=== PATIENT | female | born 1975 | race Caucasian/White ===

== ENCOUNTER → 2022-07-25 08:15 | Outpatient (BNVA) | payer MEDICAID, SELFPAY | PROVIDERS: PCP Internal Medicine; Visit Provider Internal Medicine Gastroenterology | DX: Z13.89 Encounter for screening for other disorder (principal) ==

== ENCOUNTER → 2022-08-16 13:59 | Outpatient (BNVA) | payer MEDICAID, SELFPAY | PROVIDERS: PCP Internal Medicine; Visit Provider Internal Medicine | DX: Z86.010 Personal history of colon polyps (principal); Z80.0 Family history of malignant neoplasm of digestive organs | CPT/HCPCS: 99202 ==

== ENCOUNTER 2022-10-18 05:54 | Day surgery (SDC) | payer MEDICARE, MEDICAID, SELFPAY ==
--- NOTE | 2022-10-17 13:19 | HO.ANESPROP2 ---
Documented by User: Cathleen Richmond NP 10/17/22 13:20 HPI - Anesthesia Eval Consult details Narrative: 47yo F for Colonoscopy PMFSH Active Problems Active Problems: All Active Problems (Updated 08/16/22 @ 15:19 by Jenny Mckeon MD) Family history of colon cancer (Acute) Personal history of colonic polyps (Acute) Past Medical History Medical History Asthma Chronic low back pain Fibromyalgia Gastric volvulus GERD (gastroesophageal reflux disease) History of anxiety History of trigger finger Hx of lipoma Hyperlipidemia Hypertension Family History Family History Paternal Aunt Colon cancer HTN (hypertension) Family/Other Colon cancer Maternal Grandfather Colon cancer Heart attack Maternal Grandmother Colon cancer Heart attack Father HTN (hypertension) Maternal Aunt HTN (hypertension) Paternal Aunt HTN (hypertension) Surgical History Surgical History H/O gastric sleeve History of carpal tunnel release of both wrists History of esophagogastroduodenoscopy (EGD) Hx of abdominal surgery Hx of cholecystectomy Hx of colonoscopy Hx of knee surgery Hx of LASIK Hx of shoulder surgery Social History Social History Patient Tobacco Use Status: Never used Tobacco Use of substances other than those prescribed or required for medical reasons: No Are you DNR?: No Advance Directives: No Advance Directives Information Provided: Yes Meds Allergies Allergy/AdvReac Type Severity Reaction Status Date / Time seafood Allergy Severe Anaphylaxis Verified 10/18/22 06:51 iodine Allergy Rash Verified 10/18/22 06:51 silicone Allergy Blister Verified 10/18/22 06:51 Home Medications Medication Instructions Recorded Confirmed Last Taken Type cyclobenzaprine 10 mg tablet 10 mg PO TID PRN moderate pain 08/16/22 10/13/22 Unknown History ketoconazole 2 % shampoo topical 3XW 08/16/22 Unknown History levalbuterol tartrate 45 2 puff inhalation Q6H PRN dyspnea 08/16/22 10/13/22 Unknown History mcg/actuation aerosol inhaler lisinopril 5 mg tablet 5 mg PO DAILY 08/16/22 10/13/22 Unknown History milnacipran 50 mg tablet (Savella) 50 mg PO BID 08/16/22 10/13/22 Unknown History omeprazole 20 mg capsule,delayed 20 mg PO BID 08/16/22 10/18/22 10/18/22 04:30 History release rosuvastatin 10 mg tablet 10 mg PO DAILY 08/16/22 10/13/22 Unknown History hydroxyzine HCl 10 mg tablet 1 tab PO QID PRN anxiety 10/18/22 10/18/22 Unknown History Exam Exam Date and Time: October 17, 2022 1319 Assessment and Plan Assessment Anesthesia Assessment: Chart Reviewed Documented by User: Bettye Dumont MD 10/18/22 07:40 PMFSH Past Medical History Medical History Asthma Chronic low back pain Fibromyalgia Gastric volvulus GERD (gastroesophageal reflux disease) History of anxiety History of trigger finger Hx of lipoma Hyperlipidemia Hypertension Family History Family History Paternal Aunt Colon cancer HTN (hypertension) Family/Other Colon cancer Maternal Grandfather Colon cancer Heart attack Maternal Grandmother Colon cancer Heart attack Father HTN (hypertension) Maternal Aunt HTN (hypertension) Paternal Aunt HTN (hypertension) Surgical History Surgical History H/O gastric sleeve History of carpal tunnel release of both wrists History of esophagogastroduodenoscopy (EGD) Hx of abdominal surgery Hx of cholecystectomy Hx of colonoscopy Hx of knee surgery Hx of LASIK Hx of shoulder surgery History of Problems with Anesthesia: No Social History Social History Patient Tobacco Use Status: Never used Tobacco Use of substances other than those prescribed or required for medical reasons: No Are you DNR?: No Advance Directives: No Advance Directives Information Provided: Yes Meds Allergies Allergy/AdvReac Type Severity Reaction Status Date / Time seafood Allergy Severe Anaphylaxis Verified 10/18/22 06:51 iodine Allergy Rash Verified 10/18/22 06:51 silicone Allergy Blister Verified 10/18/22 06:51 Home Medications Medication Instructions Recorded Confirmed Last Taken Type cyclobenzaprine 10 mg tablet 10 mg PO TID PRN moderate pain 08/16/22 10/13/22 Unknown History ketoconazole 2 % shampoo topical 3XW 08/16/22 Unknown History levalbuterol tartrate 45 2 puff inhalation Q6H PRN dyspnea 08/16/22 10/13/22 Unknown History mcg/actuation aerosol inhaler lisinopril 5 mg tablet 5 mg PO DAILY 08/16/22 10/13/22 Unknown History milnacipran 50 mg tablet (Savella) 50 mg PO BID 08/16/22 10/13/22 Unknown History omeprazole 20 mg capsule,delayed 20 mg PO BID 08/16/22 10/18/22 10/18/22 04:30 History release rosuvastatin 10 mg tablet 10 mg PO DAILY 08/16/22 10/13/22 Unknown History hydroxyzine HCl 10 mg tablet 1 tab PO QID PRN anxiety 10/18/22 10/18/22 Unknown History Exam Airway Mallampati Class: II TM Dist: >3cm Neck ROM: Full Loose/Missing/Broken Teeth: No Heart: RRR Lungs: CTA Assessment and Plan Assessment Anesthesia Assessment: Anesthesia Plan Discussed Final Anesthetic Review History of Problems with Anesthesia: No NPO: Yes ASA Class: II Final Preanesthetic Review: Meds/Allgs Chart Reviewed, Consent Obtained/Reviewed and Anes Risks/Benef Reviewed Patient Risk: Low Procedure Risk: Low Anesthetic Plan Anesthetic Plan: MAC: Disposition: Standard PACU
[2022-10-18 06:25] VITALS: BMI 35.5
[2022-10-18 06:31] LABS: UPreg QC Valid YES; Urine Pregnancy NEGATIVE (NEGATIVE)
[2022-10-18 06:41] VITALS: BP 93/55; PULSE 81; RESP 15; TEMP 36.6; O2SAT 95
[2022-10-18] MEDS: Lactated Ringers 1,000 ML 100 ML IVCONT (06:48)
--- NOTE | 2022-10-18 07:36 | MHC.SHP ---
Pre-Procedural Eval Section A Date of Service: 10/18/22 Section B Chief Complaint: Personal history of colonic polyps Details of Present Illness: PMH: Chronic low back pain Fibromyalgia Gastric volvulus GERD (gastroesophageal reflux disease) Hyperlipidemia Hypertension Surgical History H/O gastric sleeve History of esophagogastroduodenoscopy (EGD) Hx of colonoscopy Relevant Social History: None Present Medications: see Short Stay Collaborative assessment Allergies: Allergies Allergy/AdvReac Type Severity Reaction Status Date / Time seafood Allergy Severe Anaphylaxis Verified 10/18/22 06:51 iodine Allergy Rash Verified 10/18/22 06:51 silicone Allergy Blister Verified 10/18/22 06:51 Review of Systems Review of Systems Comment: 10 point ROS negative Exam Exam Comment: Gen appear: No acute distress HEENT: no icterus Chest: No overt resp distress Abd: soft, nontender, nondistended Psych: Stable affect, answering questions appropriately Neuro: A/Ox3 noted to move all extremities spontaneously Ext: no peripheral edema Plan Diagnosis/Plan: Unchanged I have reviewed the history and physical and performed a pertinent physical examination on my patient. No changes have occurred unless specified. Time Spent With Patient Time: Total time managing care of this patient today ____ minutes.
--- NOTE | 2022-10-18 07:40 | P.OP_ITS ---
Operative Note Operative Note Date of Service: 10/18/22 Narrative: Procedure: Colonoscopy Indication: Personal hx of polyps Endoscopist: Jenny Mckeon MD Anesthesia Provider: Julee Joyner CRNA Anesthesia type: MAC Instrument: Olympus [id number]-H190L Consent: Indication, risks vs benefits, and alternatives were discussed with the patient who gave written informed consent to proceed. EKG, pulse, pulse oximetry and blood pressure were monitored throughout the procedure. Please see anesthesia flowsheet. Procedure: The patient was brought to the procedure room and placed in the left lateral decubitus position. IV medications were administered by the anesthesia provider in attendance. A digital rectal exam was performed which was normal. A distal attachment cap was affixed to the tip of the scope and the colonoscope was then inserted through the anus and advanced through the colon to the cecum at 80 cm. Appendiceal orifice and a ileocecal valve are identified. Mucosa was carefully examined under high definition white light as the instrument was slowly withdrawn in a retrograde panoramic fashion. Retroflexion was performed in rectum. The procedure was not difficult. There were no immediate obvious complications. The quality of the prep was BBPS: 1+1+2 = inadequate Withdrawal time 12 minutes. Limitations: Poor prep. Findings: Mucosa: Poor prep limited visualization through most colon. Mucosa appeared normal to the limit visualized. No large masses noted. Protruding lesions: * 1 sessile polyp of size 2 mm in ascending colon. Cold snare polypectomy was performed. The polyp was completely removed and retrieved. * Medium internal hemorrhoids without stigmata of recent bleeding. Impression: 1. Poor prep colon 2. Total of 1 polyp removed from ascending colon. 3. Internal hemorrhoids Recommendations: - Follow path results. - Patient will be scheduled for repeat colonoscopy within 6 months.
[2022-10-18 08:23] VITALS: BP 91/66; PULSE 93; RESP 16; TEMP 36.1; O2SAT 98
[2022-10-18 08:37] VITALS: BP 105/68; PULSE 78; RESP 17; TEMP 36.4; O2SAT 100
== END 2022-10-18 09:05 | disposition home or self-care (01) ==
PROVIDERS: Nurse Practitioner; PCP Internal Medicine; Visit Provider Internal Medicine
PROC: 0DJD8ZZ Inspection of Lower Intestinal Tract, Via Natural or Artificial Opening Endoscopic (ICD-10-PCS; CPT 45378; principal; 2022-10-18 07:30)
DX: Z12.11 Encounter for screening for malignant neoplasm of colon (principal); D12.2 Benign neoplasm of ascending colon; K64.8 Other hemorrhoids; Z80.0 Family history of malignant neoplasm of digestive organs; Z86.010 Personal history of colon polyps
CPT/HCPCS: 45385; 81025; 88305

== ENCOUNTER 2023-04-27 07:31 | Day surgery (SDC) | payer OTHER, SELFPAY ==
[2023-04-25 10:23] VITALS: BMI 30.7
--- NOTE | 2023-04-26 11:02 | HO.ANESPROP2 ---
Documented by User: Cathleen Richmond NP 04/26/23 11:03 HPI - Anesthesia Eval Consult details Narrative: 47yo F for Colonoscopy PMFSH Active Problems Active Problems: All Active Problems (Updated 10/18/22 @ 06:36 by Mignon Moon, SHOBHA) Family history of colon cancer (Acute) Personal history of colonic polyps (Acute) Past Medical History Medical History History of anxiety History of trigger finger Hx of lipoma Asthma GERD (gastroesophageal reflux disease) Hypertension Hyperlipidemia Gastric volvulus Chronic low back pain Fibromyalgia Family History Family History Paternal Aunt Colon cancer HTN (hypertension) Family/Other Colon cancer Maternal Grandfather Colon cancer Heart attack Maternal Grandmother Colon cancer Heart attack Father HTN (hypertension) Maternal Aunt HTN (hypertension) Paternal Aunt HTN (hypertension) Surgical History Surgical History Hx of cholecystectomy Hx of LASIK Hx of knee surgery Hx of shoulder surgery History of carpal tunnel release of both wrists Hx of abdominal surgery H/O gastric sleeve Hx of colonoscopy History of esophagogastroduodenoscopy (EGD) History of Problems with Anesthesia: No Social History Social History Patient Tobacco Use Status: Never used Tobacco Use of substances other than those prescribed or required for medical reasons: No Are you DNR?: No Advance Directives: No Advance Directives Information Provided: Yes Meds Allergies Allergy/AdvReac Type Severity Reaction Status Date / Time seafood Allergy Severe Anaphylaxis Verified 10/18/22 06:51 iodine Allergy Rash Verified 10/18/22 06:51 silicone Allergy Blister Verified 10/18/22 06:51 Home Medications Medication Instructions Recorded Confirmed Last Taken Type cyclobenzaprine 10 mg tablet 10 mg PO TID PRN moderate pain 08/16/22 10/13/22 Unknown History ketoconazole 2 % shampoo topical 3XW 08/16/22 Unknown History levalbuterol tartrate 45 2 puff inhalation Q6H PRN dyspnea 08/16/22 10/13/22 Unknown History mcg/actuation aerosol inhaler lisinopril 5 mg tablet 5 mg PO DAILY 08/16/22 10/13/22 Unknown History milnacipran 50 mg tablet (Savella) 50 mg PO BID 08/16/22 10/13/22 Unknown History omeprazole 20 mg capsule,delayed 20 mg PO BID 08/16/22 10/18/22 10/18/22 04:30 History release rosuvastatin 10 mg tablet 10 mg PO DAILY 08/16/22 10/13/22 Unknown History hydroxyzine HCl 10 mg tablet 1 tab PO QID PRN anxiety 10/18/22 10/18/22 Unknown History Exam Exam Date and Time: April 26, 2023 1102 Height,Weight and Vital Signs: Height 5 ft 0.5 in Weight 72.575 kg Assessment and Plan Assessment Anesthesia Assessment: Chart Reviewed Final Anesthetic Review History of Problems with Anesthesia: No Documented by User: Irene Kumar MD 04/27/23 09:30 PMFSH Past Medical History Medical History History of anxiety History of trigger finger Hx of lipoma Asthma GERD (gastroesophageal reflux disease) Hypertension Hyperlipidemia Gastric volvulus Chronic low back pain Fibromyalgia Family History Family History Paternal Aunt Colon cancer HTN (hypertension) Family/Other Colon cancer Maternal Grandfather Colon cancer Heart attack Maternal Grandmother Colon cancer Heart attack Father HTN (hypertension) Maternal Aunt HTN (hypertension) Paternal Aunt HTN (hypertension) Family history of problems with anesthesia: No Surgical History Surgical History Hx of cholecystectomy Hx of LASIK Hx of knee surgery Hx of shoulder surgery History of carpal tunnel release of both wrists Hx of abdominal surgery H/O gastric sleeve Hx of colonoscopy History of esophagogastroduodenoscopy (EGD) History of Problems with Anesthesia: No Social History Social History Patient Tobacco Use Status: Never used Tobacco Use of substances other than those prescribed or required for medical reasons: No Are you DNR?: No Advance Directives: No Advance Directives Information Provided: Yes Meds Allergies Allergy/AdvReac Type Severity Reaction Status Date / Time seafood Allergy Severe Anaphylaxis Verified 10/18/22 06:51 iodine Allergy Rash Verified 10/18/22 06:51 silicone Allergy Blister Verified 10/18/22 06:51 Home Medications Medication Instructions Recorded Confirmed Last Taken Type cyclobenzaprine 10 mg tablet 10 mg PO TID PRN moderate pain 08/16/22 10/13/22 Unknown History ketoconazole 2 % shampoo topical 3XW 08/16/22 Unknown History levalbuterol tartrate 45 2 puff inhalation Q6H PRN dyspnea 08/16/22 10/13/22 Unknown History mcg/actuation aerosol inhaler lisinopril 5 mg tablet 5 mg PO DAILY 08/16/22 10/13/22 Unknown History milnacipran 50 mg tablet (Savella) 50 mg PO BID 08/16/22 10/13/22 Unknown History omeprazole 20 mg capsule,delayed 20 mg PO BID 08/16/22 10/18/22 10/18/22 04:30 History release rosuvastatin 10 mg tablet 10 mg PO DAILY 08/16/22 10/13/22 Unknown History hydroxyzine HCl 10 mg tablet 1 tab PO QID PRN anxiety 10/18/22 10/18/22 Unknown History Exam Airway Mallampati Class: II TM Dist: >3cm Neck ROM: Full Heart: rrr Lungs: cta Assessment and Plan Assessment Anesthesia Assessment: Anesthesia Plan Discussed Final Anesthetic Review Family History of Problems with Anesthesia: No History of Problems with Anesthesia: No NPO: Yes ASA Class: III Final Preanesthetic Review: No Changes in Pt Med Stat, Meds/Allgs Chart Reviewed, Consent Obtained/Reviewed and Anes Risks/Benef Reviewed Patient Risk: Low Procedure Risk: Low Anesthetic Plan Anesthetic Plan: MAC: Disposition: Standard PACU
[2023-04-27 08:42] VITALS: BP 107/62; PULSE 105; RESP 18; TEMP 36.5; O2SAT 99; BMI 34.6
[2023-04-27 08:45] LABS: UPreg QC Valid YES; Urine Pregnancy NEGATIVE (NEGATIVE)
--- NOTE | 2023-04-27 08:54 | P.OP_ITS ---
Operative Note Operative Note Date of Service: 04/27/23 Narrative: Procedure: Colonoscopy Indication: Personal history of polyps and Family history of colon cancer Endoscopist: Jenny Mckeon MD Anesthesia Provider: Dr Linh Avalos Anesthesia type: MAC Instrument: Olympus PCF-H190L Consent: Indication, risks vs benefits, and alternatives were discussed with the patient who gave written informed consent to proceed. EKG, pulse, pulse oximetry and blood pressure were monitored throughout the procedure. Please see anesthesi a flowsheet. Procedure: The patient was brought to the procedure room and placed in the left lateral decubitus position. IV medications were administered by the anesthesia provider in attendance. A digital rectal exam was performed which was abnormal due to finding of ext hemorrhoids. A distal attachment cap was then affixed to the tip of the the colonoscope which was then inserted through the anus and advanced through the colon to the cecum at 75 cm,and terminal ileum. Appendiceal orifice and ileocecal valve were identified. Mucosa was carefully examined under high definition white light as the instrument was slowly withdrawn in a retrograde panoramic fashion. Retroflexion was performed in rectum. The procedure was not difficult. There were no immediate obvious complications. The quality of the prep was BBPS: 3+2+3 = adequate Withdrawal time 10 minutes. Limitations: No limitations. Findings: Mucosa: Normal to cecum and terminal ileum. Protruding lesions: * Medium internal hemorrhoids without stigmata of recent bleeding. Impression: 1. Normal colon and terminal ileum mucosa 2. External and internal hemorrhoids Recommendations: - Repeat colonoscopy in 5 years due to family history
--- NOTE | 2023-04-27 08:54 | MHC.SHP ---
Pre-Procedural Eval Section A Date of Service: 04/27/23 Section B Chief Complaint: Family Hx of malignant neoplasm of digestive Details of Present Illness: PMH: Chronic low back pain Fibromyalgia Gastric volvulus GERD (gastroesophageal reflux disease) Hyperlipidemia Hypertension Surgical History H/O gastric sleeve History of esophagogastroduodenoscopy (EGD) Hx of colonoscopy Relevant Social History: None Present Medications: see Short Stay Collaborative assessment Allergies: Allergies Allergy/AdvReac Type Severity Reaction Status Date / Time seafood Allergy Severe Anaphylaxis Verified 10/18/22 06:51 iodine Allergy Rash Verified 10/18/22 06:51 silicone Allergy Blister Verified 10/18/22 06:51 Review of Systems Review of Systems Comment: 10 point ROS negative Exam Exam Comment: Gen appear: No acute distress HEENT: no icterus Chest: No overt resp distress Abd: soft, nontender, nondistended Psych: Stable affect, answering questions appropriately Neuro: A/Ox3 noted to move all extremities spontaneously Ext: no peripheral edema Plan Diagnosis/Plan: Unchanged I have reviewed the history and physical and performed a pertinent physical examination on my patient. No changes have occurred unless specified. Time Spent With Patient Time: Total time managing care of this patient today ____ minutes.
[2023-04-27] MEDS: Lactated Ringers 1,000 ML 100 ML IVCONT (09:29)
--- NOTE | 2023-04-27 09:49 | HO.ANESPROP2 ---
[facility] Active Problems Active Problems: All Active Problems (Updated 10/18/22 @ 06:36 by Mignon Moon RN) Family history of colon cancer (Acute) Personal history of colonic polyps (Acute) Past Medical History Medical History History of anxiety History of trigger finger Hx of lipoma Asthma GERD (gastroesophageal reflux disease) Hypertension Hyperlipidemia Gastric volvulus Chronic low back pain Fibromyalgia Family History Family History Paternal Aunt Colon cancer HTN (hypertension) Family/Other Colon cancer Maternal Grandfather Colon cancer Heart attack Maternal Grandmother Colon cancer Heart attack Father HTN (hypertension) Maternal Aunt HTN (hypertension) Paternal Aunt HTN (hypertension) Family history of problems with anesthesia: No Surgical History Surgical History Hx of cholecystectomy Hx of LASIK Hx of knee surgery Hx of shoulder surgery History of carpal tunnel release of both wrists Hx of abdominal surgery H/O gastric sleeve Hx of colonoscopy History of esophagogastroduodenoscopy (EGD) History of Problems with Anesthesia: No Social History Social History Patient Tobacco Use Status: Never used Tobacco Use of substances other than those prescribed or required for medical reasons: No Are you DNR?: No Advance Directives: No Advance Directives Information Provided: Yes Meds Allergies Allergy/AdvReac Type Severity Reaction Status Date / Time seafood Allergy Severe Anaphylaxis Verified 10/18/22 06:51 iodine Allergy Rash Verified 10/18/22 06:51 silicone Allergy Blister Verified 10/18/22 06:51 Active Medications: Current Medications Lactated Ringer's (Lr) 1,000 mls @ 100 mls/hr IVCONT .Q10H RADHA Last Admin: 04/27/23 09:29 Dose: 100 mls/hr Home Medications Medication Instructions Recorded Confirmed Last Taken Type cyclobenzaprine 10 mg tablet 10 mg PO TID PRN moderate pain 08/16/22 10/13/22 Unknown History ketoconazole 2 % shampoo topical 3XW 08/16/22 Unknown History levalbuterol tartrate 45 2 puff inhalation Q6H PRN dyspnea 08/16/22 10/13/22 Unknown History mcg/actuation aerosol inhaler lisinopril 5 mg tablet 5 mg PO DAILY 08/16/22 10/13/22 Unknown History milnacipran 50 mg tablet (Savella) 50 mg PO BID 08/16/22 10/13/22 Unknown History omeprazole 20 mg capsule,delayed 20 mg PO BID 08/16/22 10/18/22 10/18/22 04:30 History release rosuvastatin 10 mg tablet 10 mg PO DAILY 08/16/22 10/13/22 Unknown History hydroxyzine HCl 10 mg tablet 1 tab PO QID PRN anxiety 10/18/22 10/18/22 Unknown History Exam Exam Date and Time: April 27, 2023 0949 Height,Weight and Vital Signs: Height 5 ft 0.5 in Weight 81.647 kg Last Vital Signs Temp 97.7 F 04/27/23 08:42 Pulse 105 H 04/27/23 08:42 Resp 18 04/27/23 08:42 BP 107/62 04/27/23 08:42 Pulse Ox 99 04/27/23 08:42 O2 Del Method Room Air 04/27/23 08:42 Pertinent Lab Results Pertinent Lab Results: Laboratory Tests 04/27/23 Unknown Urine Test NEGATIVE Airway Mallampati Class: II TM Dist: >3cm Neck ROM: Full Heart: RRR Lungs: CTA Assessment and Plan Assessment Anesthesia Assessment: Anesthesia Plan Discussed Final Anesthetic Review Family History of Problems with Anesthesia: No History of Problems with Anesthesia: No ASA Class: II Final Preanesthetic Review: Meds/Birangs Chart Reviewed and Consent Obtained/Reviewed Patient Risk: Low Procedure Risk: Low Anesthetic Plan Anesthetic Plan: MAC: Disposition: Standard PACU
[2023-04-27 09:59] VITALS: BP 80/39; PULSE 98; RESP 16; TEMP 36.2; O2SAT 97
[2023-04-27 10:14] VITALS: BP 108/66; PULSE 80; RESP 16; O2SAT 99
--- NOTE | 2023-04-27 10:27 | HO.POSTANES ---
Post Anesthesia Evaluation Post Anesthesia Evaluation Date of Service: 04/27/23 Vital Signs: Vital Signs Temp Pulse Resp BP Pulse Ox O2 Del Method 04/27/23 10:14 80 16 108/66 99 Room Air 04/27/23 09:59 97.1 F 98 16 80/39 L 97 Room Air 04/27/23 08:42 97.7 F 105 H 18 107/62 99 Room Air Anesthesia: Monitored Mental Status: Awake Pain Control: Satisfactory Nausea/Vomiting: None Hydration: Adequate Anesthesia-Related Issues: No Anes. Related Issues
== END 2023-04-27 10:40 | disposition home or self-care (01) ==
PROVIDERS: Nurse Practitioner; PCP Internal Medicine; Visit Provider Internal Medicine
PROC: 0DJD8ZZ Inspection of Lower Intestinal Tract, Via Natural or Artificial Opening Endoscopic (ICD-10-PCS; CPT 45378; principal; 2023-04-27 09:20)
DX: Z12.11 Encounter for screening for malignant neoplasm of colon (principal); Z86.010 Personal history of colon polyps; Z80.0 Family history of malignant neoplasm of digestive organs; K64.8 Other hemorrhoids; K64.4 Residual hemorrhoidal skin tags; M54.50 Low back pain, unspecified; G89.29 Other chronic pain; M79.7 Fibromyalgia; K56.2 Volvulus; I10 Essential (primary) hypertension; E78.5 Hyperlipidemia, unspecified; K21.9 Gastro-esophageal reflux disease without esophagitis; Z98.84 Bariatric surgery status; Z91.041 Radiographic dye allergy status; Z79.899 Other long term (current) drug therapy
CPT/HCPCS: 45378; 81025

== ENCOUNTER → 2023-04-27 07:31 | Outpatient (BNV) | payer OTHER, SELFPAY | PROVIDERS: PCP Internal Medicine; Visit Provider Internal Medicine | DX: Z12.11 Encounter for screening for malignant neoplasm of colon (principal); Z86.010 Personal history of colon polyps; Z80.0 Family history of malignant neoplasm of digestive organs | CPT/HCPCS: 45378 ==

== ENCOUNTER 2023-05-03 11:49 | Outpatient (AMB) | payer OTHER, SELFPAY ==
--- NOTE | 2023-05-03 12:07 | A.OFFVIS_ITS ---
Intake Vital Signs 05/03/23 12:09 Height 5 ft 0.5 in Weight 180 lb BMI 34.6 BP 121/80 Blood Pressure Location Lt brachial Position Sitting Pulse 95 Intake Visit Reasons: S/p colo Intake Note: Patient follow up for Colonoscopy results. Patient cc: acid reflex, constipation and denies any other GI issues. Application Administrator Required: No Accompanied by: Self / Same As Patient Allergies seafood Allergy (Severe, Verified 05/03/23 12:07) Anaphylaxis iodine Allergy (Verified 05/03/23 12:07) Rash silicone Allergy (Verified 05/03/23 12:07) Blister HPI HPI Comments History of Present Illness Details 47 y.o F with fam hx of CRC and personal hx of colon polyps (x3 polyps in 2019, and has had total of 5 colonoscopies) who is here to discuss surveillance colonoscopy. Currently has no gastrointestinal complaints to include abdominal pain, nausea, vomiting, changes in appetite, stool habits. Had some heartburn and discomfort 2 months ago, and since then has been on omeprazole. Pertinent history includes family history as below. Patient states that she has been having colonoscopy since her late 20s, and has 1-2 polyps each time. Pertinent surgical history include gastric sleeve by Dr Nesbitt). Fam hx: Paternal aunt dx with colon ca in her 50s, in her 60s Paternal cousin dx with colon ca in her 40s, soon after No family history of colon cancer, uterine cancer or breast cancer in first- degree relatives. 04/27/23: [place] 1. Normal colon and terminal ileum mucos a 2. External and internal hemorrhoids 05/03/23: Reports increasing frequency of heartburn despite increasing PPI to BID. Being investigated by Dr Nesbitt's office due to hx of complex sleeve gastrectomy. Most recent EGD was done in [address] Nesbitt's office. Reports she is shceduled for a barium study first this time. In terms of colo results, no poylps noted however due to fam hx will cont q5y interval. FORMERLY [facility], [facility]1983 Medical History History of anxiety History of trigger finger Hx of lipoma Asthma GERD (gastroesophageal reflux disease) Hypertension Hyperlipidemia Gastric volvulus Chronic low back pain Fibromyalgia Surgical History Hx of cholecystectomy Hx of LASIK Hx of knee surgery Hx of shoulder surgery History of carpal tunnel release of both wrists Hx of abdominal surgery H/O gastric sleeve Hx of colonoscopy History of esophagogastroduodenoscopy (EGD) Family History Paternal Aunt Colon cancer HTN (hypertension) Family/Other Colon cancer Maternal Grandfather Colon cancer Heart attack Maternal Grandmother Colon cancer Heart attack Father HTN (hypertension) Maternal Aunt HTN (hypertension) Paternal Aunt HTN (hypertension) Social History Patient Tobacco Use Status: Never used Tobacco Review of Systems Const All systems reviewed & are unremarkable except as noted in HPI and below Physical Exam Vital Signs: Last Vital Signs Pulse 95 05/03/23 12:09 BP 121/80 05/03/23 12:09 BMI result Body Mass Index 34.6 Gen appear: NAD HEENT: nonicteric, no cervical lymphadenopathy Chest: CTA CVS: Regular S1/S2 Abd: soft, nontender, nondistended, bowel sounds + Ext: no peripheral edema Neuro: A/Ox3, noted to move all extremities spontaneously Psych: interacting appropriately Assessment & Plan Assessment & Plan (1) Personal history of colonic polyps: Code(s): Z86.010 - Personal history of colonic polyps (2) Family history of colon cancer: Code(s): Z80.0 - Family history of malignant neoplasm of digestive organs (3) Hemorrhoids: Code(s): K64.9 - Unspecified hemorrhoids Plan No polyps noted on most recent colonoscopy. Next colo due in 2027. Hemorrhoid sx burden is manageable for now. Pt was advised to avoid straining and constipation. Can use anusol supp PRN for symptomatic relief/bleeding. Follow up PRN Medications: New hydrocortisone acetate (Anusol-HC) 25 mg [place] BEDTIME 12 ea 0RF Coding Level of Care Code Est Pt Level 3 (42465) Diagnoses Personal history of colonic polyps Z86.010 Family history of colon cancer Z80.0 Hemorrhoids K64.9
[2023-05-03 12:09] VITALS: BP 121/80; PULSE 95; BMI 34.6
== END 2023-05-03 15:27 | disposition home or self-care (01) ==
PROVIDERS: PCP Internal Medicine; Visit Provider Internal Medicine
DX: Z86.010 Personal history of colon polyps (principal); Z80.0 Family history of malignant neoplasm of digestive organs; K64.9 Unspecified hemorrhoids
CPT/HCPCS: 99213

== ENCOUNTER → 2023-05-03 11:49 | Outpatient (BNVA) | payer OTHER, SELFPAY | PROVIDERS: PCP Internal Medicine; Visit Provider Internal Medicine | DX: K64.9 Unspecified hemorrhoids (principal); Z86.010 Personal history of colon polyps; Z80.0 Family history of malignant neoplasm of digestive organs | CPT/HCPCS: 99212 ==

== ENCOUNTER 2023-06-20 12:31 | Outpatient (AMB) | payer OTHER, SELFPAY ==
--- NOTE | 2023-06-20 13:20 | A.SPINEOV_ITS ---
Intake Intake Visit Reasons: low back pain Intake Note: Ms. Aranda is here today c/o chronic back pain. L/Spine MRI done @ [facility], C/Spine MRI done @ [facility]. Solvent Recoverer Required: No Allergies seafood Allergy (Severe, Verified 05/03/23 12:07) Anaphylaxis iodine Allergy (Verified 05/03/23 12:07) Rash silicone Allergy (Verified 05/03/23 12:07) Blister Assessment & Plan Assessment & Plan (1) Chronic pain syndrome: Code(s): G89.4 - Chronic pain syndrome Plan Dear colleague On 06/20/2023, I saw your patient Jody Aranda with a chief complaint of multi joint pains, including neck and back. HPI: This 48-year-old female is suffering from severe pain in several joints, including the neck and lumbar spine. She had a lumbar fusion L5-S1 [place] in [address] Vargas. She states that she is always in pain. The pain is diffusely in the neck. It feels like her neck is being snapped. She also has severe back pain. She tried all forms of conservative treatment, including physical therapy, acupuncture, water aerobics and medications. She was also seen by several medical technician assistant in the past. Her medical history is positive for fibromyalgia, hypertension, hypercholesterolemia, diabetes, glaucoma. On exam, I observe no limitations with neck movements. She has to change positions for her back pain. No neurological deficits from motor and sensation. I reviewed an MRI of the cervical spine of 11/01/2019 in detail with the patient that shows a mild cervical deformity due to C5-6 mild degenerative disc disease. No spinal cord compression or nerve compression. I also reviewed an MRI of the lumbar spine of 11/02/2022 that in essence is age-appropriate and shows no nerve compression or spinal stenosis. I discussed with the patient that there is a discrepancy between the amount of pain and the mild findings on the MRI of the cervical and lumbar spine. She is most likely suffering from rheumatoid arthritis. She is not a surgical candidate. I discharged her from further follow-up. Thank you for allowing me to participate in your patients care. total time spent was 30 minutes in counseling ,coordination of plan, personal review of imaging, surgical decision making and subsequent plan Dino Bell MD, PhD Spine Fellowship Trained Neurosurgeon Director, [facility] Coding Level of Care Code New Pt Level 3 (25618) Diagnoses Chronic pain syndrome G89.4
== END 2023-06-20 13:47 | disposition home or self-care (01) ==
PROVIDERS: PCP Internal Medicine; Visit Provider Neurological Surgery
DX: G89.4 Chronic pain syndrome (principal)
CPT/HCPCS: 99203

== ENCOUNTER → 2023-06-20 12:31 | Outpatient (BNVA) | payer OTHER, SELFPAY | PROVIDERS: PCP Internal Medicine; Visit Provider Neurological Surgery | DX: G89.4 Chronic pain syndrome (principal) | CPT/HCPCS: 99202 ==

== ENCOUNTER 2023-11-02 07:54 | Day surgery (SDC) | payer OTHER, SELFPAY ==
--- NOTE | 2023-11-01 08:35 | HO.ANESPROP2 ---
Documented by User: Cathleen Richmond NP 11/01/23 08:40 HPI - Anesthesia Eval Consult details Narrative: 48yo F for Upper Endoscopy PMFSH Active Problems Active Problems: All Active Problems (Updated 06/20/23 @ 13:52 by Dino Bell MD, PhD) Chronic pain syndrome (Acute) Hemorrhoids (Acute) Family history of colon cancer (Acute) Personal history of colonic polyps (Acute) Past Medical History Medical History Diabetes type 2, controlled History of anxiety History of trigger finger Hx of lipoma Asthma GERD (gastroesophageal reflux disease) Hypertension Hyperlipidemia Gastric volvulus Chronic low back pain Fibromyalgia Family History Family History Paternal Aunt Colon cancer HTN (hypertension) Family/Other Colon cancer Maternal Grandfather Colon cancer Heart attack Maternal Grandmother Colon cancer Heart attack Father HTN (hypertension) Maternal Aunt HTN (hypertension) Paternal Aunt HTN (hypertension) Family history of problems with anesthesia: No Surgical History Surgical History Hx of cholecystectomy Hx of LASIK Hx of knee surgery Hx of shoulder surgery History of carpal tunnel release of both wrists Hx of abdominal surgery H/O gastric sleeve Hx of colonoscopy History of esophagogastroduodenoscopy (EGD) History of Problems with Anesthesia: No Social History Social History Patient Tobacco Use Status: Never used Tobacco Use of substances other than those prescribed or required for medical reasons: No Are you DNR?: No Advance Directives: No Advance Directives Information Provided: Yes Meds Allergies Allergy/AdvReac Type Severity Reaction Status Date / Time seafood Allergy Severe Anaphylaxis Verified 11/02/23 09:22 iodine Allergy Rash Verified 11/02/23 09:22 silicone Allergy Blister Verified 11/02/23 09:22 Home Medications Medication Instructions Recorded Confirmed Last Taken Type cyclobenzaprine 10 mg tablet 10 mg PO TID PRN moderate pain 08/16/22 11/02/23 Unknown History ketoconazole 2 % shampoo 1 appl topical 3XW 08/16/22 11/02/23 Unknown History levalbuterol tartrate 45 2 puff inhalation Q6H PRN dyspnea 08/16/22 11/02/23 Unknown History mcg/actuation aerosol inhaler lisinopril 5 mg tablet 5 mg PO DAILY 08/16/22 11/02/23 11/01/23 History milnacipran 50 mg tablet (Savella) 50 mg PO BID 08/16/22 11/02/23 Unknown History omeprazole 20 mg capsule,delayed 20 mg PO BID 08/16/22 11/02/23 10/18/22 04:30 History release rosuvastatin 10 mg tablet 10 mg PO DAILY 08/16/22 11/02/23 Unknown History hydroxyzine HCl 10 mg tablet 1 tab PO QID PRN anxiety 10/18/22 11/02/23 Unknown History Assessment and Plan Assessment Anesthesia Assessment: Chart Reviewed Final Anesthetic Review Family History of Problems with Anesthesia: No History of Problems with Anesthesia: No Documented by User: Irene Kumar MD 11/02/23 09:59 [facility] Past Medical History Medical History Diabetes type 2, controlled History of anxiety History of trigger finger Hx of lipoma Asthma GERD (gastroesophageal reflux disease) Hypertension Hyperlipidemia Gastric volvulus Chronic low back pain Fibromyalgia Family History Family History Paternal Aunt Colon cancer HTN (hypertension) Family/Other Colon cancer Maternal Grandfather Colon cancer Heart attack Maternal Grandmother Colon cancer Heart attack Father HTN (hypertension) Maternal Aunt HTN (hypertension) Paternal Aunt HTN (hypertension) Surgical History Surgical History Hx of cholecystectomy Hx of LASIK Hx of knee surgery Hx of shoulder surgery History of carpal tunnel release of both wrists Hx of abdominal surgery H/O gastric sleeve Hx of colonoscopy History of esophagogastroduodenoscopy (EGD) Social History Social History Patient Tobacco Use Status: Never used Tobacco Use of substances other than those prescribed or required for medical reasons: No Are you DNR?: No Advance Directives: No Advance Directives Information Provided: Yes Meds Allergies Allergy/AdvReac Type Severity Reaction Status Date / Time seafood Allergy Severe Anaphylaxis Verified 11/02/23 09:22 iodine Allergy Rash Verified 11/02/23 09:22 silicone Allergy Blister Verified 11/02/23 09:22 Home Medications Medication Instructions Recorded Confirmed Last Taken Type cyclobenzaprine 10 mg tablet 10 mg PO TID PRN moderate pain 08/16/22 11/02/23 Unknown History ketoconazole 2 % shampoo 1 appl topical 3XW 08/16/22 11/02/23 Unknown History levalbuterol tartrate 45 2 puff inhalation Q6H PRN dyspnea 08/16/22 11/02/23 Unknown History mcg/actuation aerosol inhaler lisinopril 5 mg tablet 5 mg PO DAILY 08/16/22 11/02/23 11/01/23 History milnacipran 50 mg tablet (Savella) 50 mg PO BID 08/16/22 11/02/23 Unknown History omeprazole 20 mg capsule,delayed 20 mg PO BID 08/16/22 11/02/23 10/18/22 04:30 History release rosuvastatin 10 mg tablet 10 mg PO DAILY 08/16/22 11/02/23 Unknown History hydroxyzine HCl 10 mg tablet 1 tab PO QID PRN anxiety 10/18/22 11/02/23 Unknown History Exam Airway Mallampati Class: II Neck ROM: Full Heart: rrr Lungs: cta Assessment and Plan Assessment Anesthesia Assessment: Anesthesia Plan Discussed Final Anesthetic Review NPO: Yes ASA Class: II Final Preanesthetic Review: No Changes in Pt Med Stat, Meds/Allgs Chart Reviewed, Consent Obtained/Reviewed and Anes Risks/Benef Reviewed Patient Risk: Intermediate Procedure Risk: Low Anesthetic Plan Anesthetic Plan: MAC: Disposition: Standard PACU
[2023-11-02 09:25] VITALS: BMI 38.0
[2023-11-02 09:37] LABS: UPreg QC Valid YES; Urine Pregnancy NEGATIVE (NEGATIVE)
[2023-11-02 09:58] VITALS: BP 135/80; PULSE 109; RESP 16; TEMP 37.1; O2SAT 99
--- NOTE | 2023-11-02 11:28 | MHC.SHP ---
Pre-Procedural Eval Section A - 24 Hr Update-Section A only Date of Service: 11/02/23 Section B - Complete if H&P > 30 days Chief Complaint: GERD Details of Present Illness: PMH: Chronic low back pain Fibromyalgia Gastric volvulus GERD (gastroesophageal reflux disease) Hyperlipidemia Hypertension Surgical History H/O gastric sleeve History of esophagogastroduodenoscopy (EGD) Hx of colonoscopy Relevant Social History: None Present Medications: see Short Stay Collaborative assessment History of Previous Operations: Relevant previous surgery/procedure and date(s) Allergies: Allergies Allergy/AdvReac Type Severity Reaction Status Date / Time seafood Allergy Severe Anaphylaxis Verified 11/02/23 09:22 iodine Allergy Rash Verified 11/02/23 09:22 silicone Allergy Blister Verified 11/02/23 09:22 Review of Systems Review of Systems Comment: 10 point ROS negative Exam Exam Comment: Gen appear: No acute distress HEENT: no icterus Chest: No overt resp distress Abd: soft, nontender, nondistended Psych: Stable affect, answering questions appropriately Neuro: A/Ox3 noted to move all extremities spontaneously Ext: no peripheral edema Plan Diagnosis/Plan: Unchanged I have reviewed the history and physical and performed a pertinent physical examination on my patient. No changes have occurred unless specified. Time Spent With Patient Time: Total time managing care of this patient today ____ minutes.
--- NOTE | 2023-11-02 11:33 | P.OP_ITS ---
Operative Note Operative Note Date of Service: 11/02/23 Narrative: Procedure: Esophagogastroduodenoscopy Endoscopist: Jenny Mckeon MD Indication: Severe GERD Anesthesia Provider: Dr Bettye Dumont Anesthesia Type: MAC EGD Procedure:?? The procedure, indications, preparation and potential complications were reviewed with the patient, who indicated understanding and gave written informed consent to proceed. A physical exam was performed. The endoscope was introduced through the mouth, and advanced to the second part of duodenum. The mucosa was carefully examined on slow withdrawal of the endoscope. The patient tolerated the procedure well. There were no immediate complications.? ? EGD Findings:? * Esophagus:? Normal mucosa noted in the entire esophagus. The Z line was at 35 cm and irregular up to 34 cm. Cold forceps biopsies were taken to rule out Barretts esophagus. If BE confirmed, these will also be sent out for tissue Cypher. * Stomach:? Normal mucosa was noted in the stomach. Evidence of sleeve gastrectomy. Random gastric biopsies were taken to rule out H Pylori infection. * Duodenum:? Normal mucosa was noted in the whole of the examined duodenum. Cold forceps biopsies were taken from duodenal bulb and second portion of the duodenum to rule out celiac sprue. ? EGD Impressions:? * Normal esophagus (biopsy, tissue cypher) * Normal stomach (biopsy) * Normal duodenum (biopsy) ?? Recommendations:?? * Follow biopsy results. Our office will call or send a letter with results within 7-10 days. * Continue PPI therapy. * If H pylori +, patient will be prescribed eradication therapy followed by test of cure. * Avoid NSAIDs. Above has been reviewed with the patient.
[2023-11-02 11:55] VITALS: BP 107/65; PULSE 105; RESP 18; TEMP 36.9; O2SAT 99
[2023-11-02 12:10] VITALS: BP 124/70; PULSE 88; RESP 20; TEMP 36.4; O2SAT 100
== END 2023-11-02 12:55 | disposition home or self-care (01) ==
PROVIDERS: Nurse Practitioner; PCP Internal Medicine; Visit Provider Internal Medicine
PROC: 0DJ08ZZ Inspection of Upper Intestinal Tract, Via Natural or Artificial Opening Endoscopic (ICD-10-PCS; CPT 43235; principal; 2023-11-02 10:50)
DX: K21.9 Gastro-esophageal reflux disease without esophagitis (principal); K22.89 Other specified disease of esophagus; K44.9 Diaphragmatic hernia without obstruction or gangrene; Z90.3 Acquired absence of stomach [part of]; Z98.84 Bariatric surgery status; K56.2 Volvulus; I10 Essential (primary) hypertension; E78.5 Hyperlipidemia, unspecified; M79.7 Fibromyalgia; G89.29 Other chronic pain; M54.50 Low back pain, unspecified; Z79.899 Other long term (current) drug therapy; Z91.041 Radiographic dye allergy status; Z98.890 Other specified postprocedural states
CPT/HCPCS: 43239; 81025; 88305; 88313; 88342; J2704

== ENCOUNTER → 2023-11-02 07:54 | Outpatient (BNV) | payer OTHER, SELFPAY | PROVIDERS: PCP Internal Medicine; Visit Provider Internal Medicine | DX: K21.9 Gastro-esophageal reflux disease without esophagitis (principal) | CPT/HCPCS: 43239 ==

== ENCOUNTER 2023-11-13 08:36 | Outpatient (AMB) | payer OTHER, SELFPAY ==
--- NOTE | 2023-11-13 08:37 | A.OFFVIS_ITS ---
Intake Vital Signs 11/13/23 08:39 Height 5 ft Weight 196 lb 3.382 oz BMI 38.3 BP 118/68 Blood Pressure Location Rt brachial Position Sitting Pulse 121 H Pulse Source Pulse Oximeter Pulse Oximetry (%) 99 Oxygen Delivery Method Room Air Intake Visit Reasons: Persistent Joint Pain /cm Intake Note: New patient presents today for consult. C/o pain in whole body. Symptoms started approx 2018. States she has CTS and was told her symptoms were concurrent with MS Denies fm h/o MS.Follows with neurology Dr Fish, ortho [facility] Associate Chemist Required: No Accompanied by: Self / Same As Patient Allergies seafood Allergy (Severe, Verified 11/13/23 08:44) Anaphylaxis iodine Allergy (Verified 11/13/23 08:44) Rash silicone Allergy (Verified 11/13/23 08:44) Blister Medication List - Last Reconciled 11/13/23 by Minerva Horn MD cyclobenzaprine 10 mg PO TID PRN hydrocortisone acetate (Anusol-HC) 25 mg [place] BEDTIME hydroxyzine HCl 1 tab PO QID PRN ketoconazole 2% 1 appl topical 3XW levalbuterol tartrate 45 mcg/actuation 2 puffs inhalation Q6H PRN lisinopril 5 mg PO DAILY meloxicam 15 mg PO DAILY milnacipran (Savella) 50 mg PO BID omeprazole 20 mg PO BID rosuvastatin 10 mg PO DAILY zolpidem 10 mg PO BEDTIME PRN HPI HPI Comments History of Present Illness Details This is a 48-year-old female who presents for evaluation of diffuse pain. Patient states that she has neck cracking and pain. She also has lower back pain. She has history of L-spine surgery in the past. She was recently evaluated by neurosurgeon and deemed not to be a surgical candidate. She states that she has had bilateral hand pain for more than 20 years. She used to work at a [employer]. She had carpal tunnel syndrome in her 20s. She states that she had multiple carpal tunnel surgeries for both hands over the years. She has 2 trigger finger release procedures in the right hand and just had trigger finger release procedures for the left hand last week. She states that both her hands swell, usually worse in the morning, associated with morning stiffness improving after about 90 minutes. Improves with moving her hands. She was recently evaluated by Dr. Cardona and meloxicam 15 mg daily was prescribed, she has been taking it daily for the last 3 months without any improvement. Patient states that she can not take steroids due to her history of glaucoma. She believes that her mother has rheumatoid arthritis. She denies any skin rashes. She denies any history of DVT/PE. She had 2 pregnancies, 1 live and 1 stillbirth. No abortions or miscarriages PFSH Medical History Diabetes type 2, controlled History of anxiety History of trigger finger Hx of lipoma Asthma GERD (gastroesophageal reflux disease) Hypertension Hyperlipidemia Gastric volvulus Chronic low back pain Fibromyalgia Surgical History S/P trigger finger release Hx of cholecystectomy Hx of LASIK Hx of knee surgery Hx of shoulder surgery History of carpal tunnel release of both wrists Hx of abdominal surgery H/O gastric sleeve Hx of colonoscopy History of esophagogastroduodenoscopy (EGD) Family History Paternal Aunt Colon cancer HTN (hypertension) Family/Other Colon cancer Maternal Grandfather Colon cancer Heart attack Maternal Grandmother Colon cancer Heart attack Father HTN (hypertension) Maternal Aunt HTN (hypertension) Paternal Aunt HTN (hypertension) Mother Rheumatoid arthritis Social History Alcohol intake: former Patient Tobacco Use Status: Never used Tobacco Female Reproductive History Menstrual Total pregnancies: 2 Number of Living Children: 1 Ab induced: 0 Ab spontaneous: 0 Review of Systems Const Denies fever(s) and Reports weight gain Eyes Reports blurry vision, Reports itchy eyes and Reports eye pain ENT Reports neck pain and Reports tinnitus Musc Reports back pain, Reports arthralgias, Reports joint swelling, Reports limited range of motion, Reports neck pain, Reports numbness, Reports stiffness and Reports tingling Neuro Reports numbness and Reports tingling Aller/Immun Reports itchy eyes Physical Exam Vital Signs: Last Vital Signs Pulse 121 H 11/13/23 08:39 BP 118/68 11/13/23 08:39 Pulse Ox 99 11/13/23 08:39 Oxygen Delivery Method Room Air 11/13/23 08:39 BMI result Body Mass Index 38.3 Const General: cooperative, healthy appearing and comfortable Nutritional Appearance: obese morbidly obese Orientation/consciousness: patient oriented x3 Limitations: no limitations HEENT Head: Yes normocephalic and Yes atraumatic Mouth: moist mucous membranes Resp Effort & Inspection: normal respiratory effort and able to speak in complete sentences Auscultation: clear to auscultation bilaterally Cardio Rate: regular rate Rhythm: regular rhythm Skin General skin exam: no rashes or lesions noted Neuro General: patient oriented x3 Extrem Other: Right hand with no wrist tenderness or pain with flexion extension Right 3rd and 4th MCP tenderness Right 3rd PIP tenderness and mild swelling Significantly reduced right hand health and safety advisor strength Left wrist pain with flexion and extension Positive Chato's test on the left Left 2nd through 5th MCP tenderness Mild swelling of dorsum of left hand Few tender PIP is left hand Limited range of motion left shoulder Normal nailfold capillaroscopy Assessment & Plan Assessment & Plan (1) Bilateral hand pain: Code(s): M79.641 - Pain in right hand; M79.642 - Pain in left hand Plan: 48-year-old female presents for evaluation of bilateral hand pain for many years. She has had multiple surgeries for bilateral carpal tunnel syndrome as well as multiple procedures for trigger finger release read on exam she has mild left hand swelling however she had trigger finger release last week. Symptoms did not respond to meloxicam. Patient can not take prednisone due to her history of glaucoma. There is Questionable history of rheumatoid arthritis in her mother. Will order comprehensive serology to screen for underlying autoimmune rheumatic disease. Check bilateral hand x-rays. Will also check bilateral hand ultrasound to evaluate for synovitis/tenosynovitis. Ultrasound to be scheduled at least 3 weeks from today, hopefully postop edema would have improved. Follow-up in about 4 weeks Plan I spent 50 minutes reviewing patient's chart, evaluating patient, ordering diagnostic workup, counseling patient and documenting in the chart Orders: Orders [facility]AW Reflex Titer and Pattern Today M32.9 - Systemic lupus erythematosus, unspecified DNA Double Stranded-Crithidia Today M32.9 - Systemic lupus erythematosus, unspecified Sjogren's Antibodies Today M32.9 - Systemic lupus erythematosus, unspecified Comprehensive Met. Panel Today M32.9 - Systemic lupus erythematosus, unspecified Hepatitis A,B,C Profile Today Z11.59 - Encounter for screening for other viral diseases Rheumatoid Factor Today M25.50 - Pain in unspecified joint Cyclic Citrullinated Peptide Today M25.50 - Pain in unspecified joint XR hand wrist LT Today M25.50 - Pain in unspecified joint XR hand wrist RT Today M25.50 - Pain in unspecified joint US extremity nonvascular Today M79.641 - Pain in right hand, M79.642 - Pain in left hand Anti Extractable Nuclear Ag Today M32.9 - Systemic lupus erythematosus, unspecified Anti DNA DS Antibody Today M32.9 - Systemic lupus erythematosus, unspecified Complement C3 Today M32.9 - Systemic lupus erythematosus, unspecified Complement C4 Today M32.9 - Systemic lupus erythematosus, unspecified C Reactive Protein Today M32.9 - Systemic lupus erythematosus, unspecified Erythrocyte Sedimentation Rate Today M32.9 - Systemic lupus erythematosus, unspecified Protein Creatinine Ratio, Ur Today M32.9 - Systemic lupus erythematosus, unspecified UA w Microscopic Today M32.9 - Systemic lupus erythematosus, unspecified Complete Blood Count Auto Diff Today M32.9 - Systemic lupus erythematosus, unspecified T Spot TB Today Z11.7 - Encounter for testing for latent tuberculosis infection Immunofixation Pnl, Serum Today M32.9 - Systemic lupus erythematosus, unspecified Protein Electrophoresis, Serum Today M32.9 - Systemic lupus erythematosus, unspecified Coding Level of Care Code New Pt Level 4 (36074) Diagnoses Bilateral hand pain M79.641; M79.642
[2023-11-13 08:39] VITALS: BP 118/68; PULSE 121; O2SAT 99; BMI 38.3
== END 2023-11-13 09:21 | disposition home or self-care (01) ==
PROVIDERS: PCP Internal Medicine; Visit Provider Student in an Organized Health Care Education/Training Program
DX: M79.641 Pain in right hand (principal); M79.642 Pain in left hand
CPT/HCPCS: 99204

== ENCOUNTER 2023-11-13 08:36 | Outpatient (REF) | payer OTHER, SELFPAY ==
--- NOTE | ~2023-11-13 | XR_ITS ---
EXAMINATION: XR hand wrist bilateral CLINICAL INFORMATION: Indication wrist pain COMPARISON: None TECHNIQUE: 4 views of the bilateral hands and wrists FINDINGS: RIGHT HAND AND WRIST: No fracture or dislocation. Joint spaces are maintained. No cortical erosion. Soft tissues are unremarkable. LEFT HAND AND WRIST: No fracture or dislocation. Joint spaces are maintained. No cortical erosion. Soft tissues are unremarkable. XR/XR hand wrist LT IMPRESSION: Unremarkable radiographs of the bilateral hands and wrists.
--- NOTE | ~2023-11-13 | XR_ITS ---
EXAMINATION: XR hand wrist bilateral CLINICAL INFORMATION: Indication wrist pain COMPARISON: None TECHNIQUE: 4 views of the bilateral hands and wrists FINDINGS: RIGHT HAND AND WRIST: No fracture or dislocation. Joint spaces are maintained. No cortical erosion. Soft tissues are unremarkable. LEFT HAND AND WRIST: No fracture or dislocation. Joint spaces are maintained. No cortical erosion. Soft tissues are unremarkable. XR/XR hand wrist RT IMPRESSION: Unremarkable radiographs of the bilateral hands and wrists.
[2023-11-13 09:47] LABS: MANUAL DIFF FLAG NO
[2023-11-13 10:30] LABS: Basophils Percent Auto 0.4 % (0-2); Eosinophils Absolute Auto 0.1 X10*3/uL (0.0-0.4); Eosinophils Percent Auto 0.8 % (0-4); Hematocrit 37.5 % (37.0-47.0); Hemoglobin 12.5 g/dl (12.0-16.0); Imm Gran Abs Auto 0.03 X10*3/uL (0.00-0.03); Imm Gran Pct Auto 0.4 % (0.0-0.4); Lymphocytes Absolute Auto 1.6 X10*3/uL (1.2-4.9); Lymphocytes Percent Auto 22.5 % (20-40); Mean Corpuscular HGB Conc 33.3 g/dl (31.0-35.0); Mean Corpuscular Hemoglobin 31.6 pg (27.0-33.0); Mean Corpuscular Volume 94.9 fL (80.0-98.0); Mean Platelet Volume 10.3 fL (9.4-12.3); Monocytes Absolute Auto 0.3 X10*3/uL (0.1-1.2); Monocytes Percent Auto 4.6 % (2-11); Neutrophils Absolute Auto 5.1 x10*3/uL (2.0-8.3); Neutrophils Percent Auto 71.3 % (45-73); Platelet Count 259 X10*3/uL (160-400); Red Blood Count 3.95 X10*6/uL (4.20-5.50); Red Cell Distribution Width 12.5 % (11.0-16.0); White Blood Count 7.2 X10*3/uL (4.8-10.8)
[2023-11-13 10:46] LABS: Creatinine Urine 146.39 mg/dL; Total Protein Urine Random < 7 mg/dL (<12)
[2023-11-13 10:54] LABS: Rheumatoid Factor < 13.0 IU/mL (<15.0)
[2023-11-13 10:56] LABS: Appearance Urine Clear; Color Urine Dark Yellow; Glucose Urine UA Negative (Negative); Leukocyte Esterase Urine Negative (Negative); Nitrite Urine Negative (Negative); Specific Gravity - Urine 1.025 (1.005-1.025); Urine Blood Negative (Negative); Urine Ketones Negative (Negative); Urine Protein Negative (Neg-Trace)
[2023-11-13 11:01] LABS: Alanine Aminotransferase 23 U/L (0-31); Albumin Level 4.5 g/dL (3.5-5.0); Alkaline Phosphatase 60 U/L (39-117); Anion Gap 10 (12-20); Aspartate Amino Transferase 19 U/L (5-31); Bilirubin Total 0.4 mg/dL (0.0-1.0); Blood Urea Nitrogen 18 mg/dL (9-16); C Reactive Protein 0.21 mg/dL (< or = 0.50); Calcium 9.8 mg/dL (8.4-10.2); Carbon Dioxide 29 mmol/L (22-29); Chloride 105 mmol/L (96-108); Estimated Glomerular Filt Rate > 60; Glucose Random 103 mg/dL (60-115); Potassium 3.8 mmol/L (3.3-5.1); Sodium 140 mmol/L (135-145); Total Protein 7.4 g/dL (6.5-8.0)
[2023-11-13 11:19] LABS: HBc Num1 0.06 S/CO (0.00-0.79); HBsAGNum1 0.26 S/CO (0.00-0.99); Hepatitis A Antibody IgM 0.16 Index (0-0.79); Hepatitis B Core Antibody Nonreactive (Nonreactive); Hepatitis B Surface Antigen Negative (Negative); ~HepC Num1 0.06 S/CO (0.00-0.79); ~Hepatitis A Antibody IgM Nonreactive (Nonreactive); ~Hepatitis B Surface Antibody NONREACTIVE (Nonreactive); ~Hepatitis C Antibody Nonreactive (Nonreactive)
[2023-11-13 11:22] LABS: Erythrocyte Sedimentation Rate 18 MM/HR (0-20)
[2023-11-13 11:29] LABS: Bacteria Urine 1+ (None Seen); Hyaline Casts Urine 0-2 /LPF (0-2); RBC Urine 0-2 /HPF (0-2); WBC Urine 0-5 /HPF (0-5)
[2023-11-14 11:33] LABS: Complement C3 52 mg/dL (83-193)
[2023-11-14 14:39] LABS: Cyclic Citrullinated Peptide <16 UNITS
[2023-11-14 20:02] LABS: Anti DNA DS Antibody <1 IU/mL; Antibody to SS-A Antigen <1.0 NEG AI (<1.0 NEG); Antibody to SS-B Antigen <1.0 NEG AI (<1.0 NEG); SM/Ribonucleoprotein Ab <1.0 NEG AI (<1.0 NEG); Smith Protein <1.0 NEG AI (<1.0 NEG)
[2023-11-14 21:14] LABS: Prot Elec - Albumin 4.2 g/dL (3.8-4.8); Prot Elec - Alpha1 0.3 g/dL (0.2-0.3); Prot Elec - Alpha2 0.8 g/dL (0.5-0.9); Prot Elec - Beta 1 0.5 g/dL (0.4-0.6); Prot Elec - Beta 2 0.5 g/dL (0.2-0.5); Prot Elec - Gamma 0.8 g/dL (0.8-1.7); Prot Elec - Total Protein 6.9 g/dL (6.1-8.1)
[2023-11-15 12:03] LABS: Anti Nuclear Antibody Screen NEGATIVE (NEGATIVE)
[2023-11-15 13:09] LABS: IgA 326 mg/dL (47-310); IgG 781 mg/dL (600-1640); IgM 33 mg/dL (50-300)
[2023-11-15 22:53] LABS: TS Negative Control Passed; TS Panel A 0; TS Panel B 0; TS Positive Control Passed; TSpotTB Negative (Negative)
[2023-11-19 13:49] LABS: DNAds, Crithidia Antibody Negative (Negative)
== END 2023-11-13 08:37 | disposition home or self-care (01) ==
LOC: HO.LAB 08:36
PROVIDERS: PCP Internal Medicine; Visit Provider Student in an Organized Health Care Education/Training Program
DX: Z11.7 Encounter for testing for latent tuberculosis infection (principal); Z11.59 Encounter for screening for other viral diseases; M32.9 Systemic lupus erythematosus, unspecified; M79.641 Pain in right hand; M79.642 Pain in left hand; M25.532 Pain in left wrist; M25.531 Pain in right wrist
CPT/HCPCS: 36415; 73110; 73130; 80053; 81001; 82570; 82784; 84156; 84165; 85025; 85652; 86038; 86140; 86160; 86200; 86225; 86235; 86255; 86334; 86431; 86481; 86704; 86706; 86709; 86803; 87340; 99202

== ENCOUNTER 2023-11-20 11:16 | Outpatient (AMB) | payer OTHER, SELFPAY ==
--- NOTE | 2023-11-20 11:25 | MHC.OFFVIS ---
Intake Vital Signs 11/20/23 11:26 Height 5 ft Weight 194 lb 0.108 oz BMI 37.9 BP 111/60 Blood Pressure Location Lt brachial Position Sitting Pulse 98 Intake Visit Reasons: f/u egd Intake Note: Jody presents in the office as a follow up EGD. CC: She is here for results to her EGD. 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 Currently has no gastrointestinal complaints to include abdominal pain, nausea, vomiting, changes in appetite, stool habits. Had some heartburn and discomfort 2 months ago, and since then has been on omeprazole. Pertinent history includes family history as below. Patient states that she has been having colonoscopy since her late 20s, and has 1-2 polyps each time. Pertinent surgical history include gastric sleeve by Dr Nesbitt). Fam hx: Paternal aunt dx with colon ca in her 50s, in her 60s Paternal cousin dx with colon ca in her 40s, soon after No family history of colon cancer, uterine cancer or breast cancer in first-degree relatives. 04/27/23: [place] 1. Normal colon and terminal ileum mucosa 2. External and internal hemorrhoids 05/03/23: Reports increasing frequency of heartburn despite increasing PPI to BID. Being investigated by Dr Nesbitt's office due to hx of complex sleeve gastrectomy. Most recent EGD was done in [address] Nesbitt's office. Reports she is shceduled for a barium study first this time. In terms of colo results, no poylps noted however due to fam hx will cont q5y interval. EGD 11/02/23: Normal esophagus (biopsy, tissue cypher) Normal stomach (biopsy) Normal duodenum (biopsy) A. Duodenum, biopsy: Duodenal mucosa with preserved villi and no specific change. B. Stomach, random, biopsy: Gastric body mucosa with focal minimal chronic inactive inflammation, and focal mild features suggesting proton pump inhibitor effect; negative for H pylori, intestinal metaplasia and dysplasia. C. Esophagogastric junction, biopsy: Squamocolumnar mucosa with mild chronic inflammation; negative for intestinal metaplasia and dysplasia. 11/20/23: Pt here for follow up after EGD. Reports persistent heartburn sensation. To recall EGD was done on PPI, pt did not remember to hold it. Despite this, some microscopic evidence of ongoing inflammation. [facility] Medical History (Updated 11/22/23 @ 15:46 by Jenny Mckeon MD) Diabetes type 2, controlled History of anxiety History of trigger finger Hx of lipoma Asthma GERD (gastroesophageal reflux disease) Hypertension Hyperlipidemia Gastric volvulus Chronic low back pain Fibromyalgia Surgical History S/P trigger finger release Hx of cholecystectomy Hx of LASIK Hx of knee surgery Hx of shoulder surgery History of carpal tunnel release of both wrists Hx of abdominal surgery H/O gastric sleeve Hx of colonoscopy History of esophagogastroduodenoscopy (EGD) Family History Paternal Aunt Colon cancer HTN (hypertension) Family/Other Colon cancer Maternal Grandfather Colon cancer Heart attack Maternal Grandmother Colon cancer Heart attack Father HTN (hypertension) Maternal Aunt HTN (hypertension) Paternal Aunt HTN (hypertension) Mother Rheumatoid arthritis Social History Alcohol intake: former Patient Tobacco Use Status: Never used Tobacco Review of Systems Const All systems reviewed & are unremarkable except as noted in HPI and below Physical Exam Vital Signs: Last Vital Signs Pulse 98 11/20/23 11:26 BP 111/60 11/20/23 11:26 BMI result Body Mass Index 37.9 NAD Nonicteric Speaking in full sentences A/Ox3, normal gait Assessment & Plan Assessment & Plan (1) GERD (gastroesophageal reflux disease): Code(s): K21.9 - Gastro-esophageal reflux disease without esophagitis Plan Reviewed with the patient the no esophagitis was noted endoscopically, however since the EGD was done on PPI, difficult to determine. Certainly some evidence of GERD on histological level. Can trial switching to Nexium 20 mg once daily to see if more effective. We will review response in 8 weeks, and if minimal improvement, will favor Collins study off PPI for further evaluation Medications: New esomeprazole magnesium (Nexium) 20 mg PO DAILY 90 days 90 caps 0RF Coding Level of Care Code Est Pt Level 3 (35897) Diagnoses GERD (gastroesophageal reflux disease) K21.9
[2023-11-20 11:26] VITALS: BP 111/60; PULSE 98; BMI 37.9
== END 2023-11-20 12:24 | disposition home or self-care (01) ==
PROVIDERS: PCP Internal Medicine; Visit Provider Internal Medicine
DX: K21.9 Gastro-esophageal reflux disease without esophagitis (principal)
CPT/HCPCS: 99213

== ENCOUNTER → 2023-11-20 11:16 | Outpatient (BNVA) | payer OTHER, SELFPAY | PROVIDERS: PCP Internal Medicine; Visit Provider Internal Medicine | DX: K21.9 Gastro-esophageal reflux disease without esophagitis (principal); Z86.010 Personal history of colon polyps; Z98.890 Other specified postprocedural states | CPT/HCPCS: 99212 ==

== ENCOUNTER 2023-12-14 07:45 | Outpatient (AMB) | payer MEDICARE, MEDICAID, SELFPAY ==
[2023-12-14 07:54] VITALS: BP 126/74; PULSE 113; O2SAT 99; BMI 37.2
--- NOTE | 2023-12-14 07:54 | A.OFFVIS_ITS ---
Vital Signs 12/14/23 07:54 Height 5 ft Weight 190 lb 11.198 oz BMI 37.2 BP 126/74 Blood Pressure Location Rt brachial Position Sitting Pulse 113 H Pulse Source Pulse Oximeter Pulse Oximetry (%) 99 Oxygen Delivery Method Room Air Intake Visit Reasons: Hand US follow up/CM Intake Note: Patient last seen 11/13/23 presents today for follow up and test results. MRI neuro Dr Fish Rn Endocrinology Required: No Accompanied by: Self / Same As Patient Allergies seafood Allergy (Severe, Verified 12/14/23 07:58) Anaphylaxis iodine Allergy (Verified 12/14/23 07:58) Rash silicone Allergy (Verified 12/14/23 07:58) Blister Medication List - Last Reconciled 12/14/23 by Minerva Horn MD albuterol sulfate 90 mcg/actuation (Ventolin HFA) inhalation cyclobenzaprine 10 mg PO TID PRN esomeprazole magnesium (Nexium) 20 mg PO DAILY 90 days hydrocortisone acetate (Anusol-HC) 25 mg NM BEDTIME hydroxyzine HCl 1 tab PO QID PRN ketoconazole 2% 1 appl topical 3XW levalbuterol tartrate 45 mcg/actuation 2 puffs inhalation Q6H PRN lisinopril 5 mg PO DAILY meloxicam 15 mg PO DAILY milnacipran (Savella) 50 mg PO BID rosuvastatin 10 mg PO DAILY zolpidem 10 mg PO BEDTIME PRN HPI Comments Details: Patient returns for follow-up after completion of her diagnostic workup. Continue used to feel about the same. Initial history: This is a 48-year-old female who presents for evaluation of diffuse pain. Patient states that she has neck cracking and pain. She also has lower back pain. She has history of L-spine surgery in the past. She was recently evaluated by neurosurgeon and deemed not to be a surgical candidate. She states that she has had bilateral hand pain for more than 20 years. She used to work at a [employer]. She had carpal tunnel syndrome in her 20s. She states that she had multiple carpal tunnel surgeries for both hands over the years. She has 2 trigger finger release procedures in the right hand and just had trigger finger release procedures for the left hand last week. She states that both her hands swell, usually worse in the morning, associated with morning stiffness improving after about 90 minutes. Improves with moving her hands. She was recently evaluated by Dr. Cardona and meloxicam 15 mg daily was prescribed, she has been taking it daily for the last 3 months without any improvement. Patient states that she can not take steroids due to her history of glaucoma. She believes that her mother has rheumatoid arthritis. She denies any skin rashes. She denies any history of DVT/PE. She had 2 pregnancies, 1 live and 1 stillbirth. No abortions or miscarriages [facility] Medical History Diabetes type 2, controlled History of anxiety History of trigger finger Hx of lipoma Asthma GERD (gastroesophageal reflux disease) Hypertension Hyperlipidemia Gastric volvulus Chronic low back pain Fibromyalgia Surgical History S/P trigger finger release Hx of cholecystectomy Hx of LASIK Hx of knee surgery Hx of shoulder surgery History of carpal tunnel release of both wrists Hx of abdominal surgery H/O gastric sleeve Hx of colonoscopy History of esophagogastroduodenoscopy (EGD) Family History Paternal Aunt Colon cancer HTN (hypertension) Family/Other Colon cancer Maternal Grandfather Colon cancer Heart attack Maternal Grandmother Colon cancer Heart attack Father HTN (hypertension) Maternal Aunt HTN (hypertension) Paternal Aunt HTN (hypertension) Mother Rheumatoid arthritis Social History Alcohol intake: former Patient Tobacco Use Status: Never used Tobacco Review of Systems Musc Reports back pain, Reports arthralgias, Reports joint swelling, Reports limited range of motion, Reports numbness, Reports stiffness and Reports tingling Neuro Reports numbness and Reports tingling Physical Exam Vital Signs: Last Vital Signs Pulse 113 H 12/14/23 07:54 BP 126/74 12/14/23 07:54 Pulse Ox 99 12/14/23 07:54 Oxygen Delivery Method Room Air 12/14/23 07:54 BMI result Body Mass Index 37.2 Const General: cooperative, healthy appearing and comfortable Nutritional Appearance: obese morbidly obese Orientation/consciousness: patient oriented x3 Limitations: no limitations HEENT Head: Yes normocephalic and Yes atraumatic Mouth: moist mucous membranes Resp Effort & Inspection: normal respiratory effort and able to speak in complete sentences Neuro General: patient oriented x3 Extrem Other: Right hand with no wrist tenderness or pain with flexion extension Right 3rd and 4th MCP tenderness Right 3rd PIP tenderness and mild swelling 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 Scattered bony erosions in the dorsal aspects of the carpal bones.? Findings are nonspecific.? With no evidence of hyperemia or synovitis.? Recommend radiographs of the hands and wrists for further evaluation.?? Heterogenously hypoechoic areas of the volar aspects of the carpal tunnels, likely postsurgical Hypoechoic thickened area volar to the 3rd flexor digitorum left hand, likely post surgical [place] [id number] XRay Report Signed Patient: Jody Aranda MR#: [id number] : 1975 Acct:[id number] Age/Sex: 48 / F ADM Date: 11/13/23 Loc: HO.LAB Attending Dr: Minerva Horn MD Ordering Physician: Minerva Horn MD Date of Service: 11/13/23 Procedure(s): XR hand wrist LT Accession Number(s): [id number] cc: Madelin Heath MD; Minerva Horn MD~ EXAMINATION: XR hand wrist bilateral CLINICAL INFORMATION: Indication wrist pain COMPARISON: None TECHNIQUE: 4 views of the bilateral hands and wrists FINDINGS: RIGHT HAND AND WRIST: No fracture or dislocation. Joint spaces are maintained. No cortical erosion. Soft tissues are unremarkable. LEFT HAND AND WRIST: No fracture or dislocation. Joint spaces are maintained. No cortical erosion. Soft tissues are unremarkable. XR/XR hand wrist LT IMPRESSION: Unremarkable radiographs of the bilateral hands and wrists. Assessment & Plan Assessment & Plan (1) Bilateral hand pain: Code(s): M79.641 - Pain in right hand; M79.642 - Pain in left hand Category: Medical Plan: 48-year-old female presents for evaluation of bilateral hand pain for many years. She has had multiple surgeries for bilateral carpal tunnel syndrome as well as multiple procedures for trigger finger release. There is questionable family history of rheumatoid arthritis. On exam she has multiple tender joints. Bilateral hand and wrist ultrasound do not show any evidence of synovitis/tenosynovitis but shows scattered erosions at the carpal bones. Bilateral hand x-rays are unremarkable however. Comprehensive Serology is negative and inflammatory markers are normal. 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 Discussed risks and benefits of methotrexate. Patient agreed to proceed. 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
== END 2023-12-14 08:34 | disposition home or self-care (01) ==
PROVIDERS: PCP Internal Medicine; Visit Provider Student in an Organized Health Care Education/Training Program
DX: M79.641 Pain in right hand (principal); M79.642 Pain in left hand; Z79.631 Long term (current) use of antimetabolite agent
CPT/HCPCS: 99215

== ENCOUNTER → 2023-12-14 07:45 | Outpatient (BNVA) | payer MEDICARE, MEDICAID, SELFPAY | PROVIDERS: PCP Internal Medicine; Visit Provider Student in an Organized Health Care Education/Training Program | DX: M79.641 Pain in right hand (principal); M79.642 Pain in left hand; Z79.631 Long term (current) use of antimetabolite agent | CPT/HCPCS: 99212 ==

== ENCOUNTER 2024-01-19 12:01 | Outpatient (AMB) | payer MEDICARE, MEDICAID, SELFPAY ==
--- NOTE | 2024-01-19 12:08 | MHC.OFFVIS ---
Vital Signs 01/19/24 12:11 Height 5 ft Weight 191 lb 12.835 oz BMI 37.5 BP 102/61 Blood Pressure Location Lt brachial Position Sitting Pulse 107 H Intake Visit Reasons: 8 week follow up Intake Note: Jody presents in the office as a 8 week follow up. CC: She states that she is still having acid reflux no matter what she takes. She gets constipation because she started the protein shakes again. 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 Currently has no gastrointestinal complaints to include abdominal pain, nausea, vomiting, changes in appetite, stool habits. Had some heartburn and discomfort 2 months ago, and since then has been on omeprazole. Pertinent history includes family history as below. Patient states that she has been having colonoscopy since her late 20s, and has 1-2 polyps each time. Pertinent surgical history include gastric sleeve by Dr Nesbitt). Fam hx: Paternal aunt dx with colon ca in her 50s, in her 60s Paternal cousin dx with colon ca in her 40s, soon after No family history of colon cancer, uterine cancer or breast cancer in first-degree relatives. 04/27/23: [place] 1. Normal colon and terminal ileum mucosa 2. External and internal hemorrhoids 05/03/23: Reports increasing frequency of heartburn despite increasing PPI to BID. Being investigated by Dr Nesbitt's office due to hx of complex sleeve gastrectomy. Most recent EGD was done in [address] Nesbitt's office. Reports she is shceduled for a barium study first this time. In terms of colo results, no poylps noted however due to fam hx will cont q5y interval. EGD 11/02/23: Normal esophagus (biopsy, tissue cypher) Normal stomach (biopsy) Normal duodenum (biopsy) A. Duodenum, biopsy: Duodenal mucosa with preserved villi and no specific change. B. Stomach, random, biopsy: Gastric body mucosa with focal minimal chronic inactive inflammation, and focal mild features suggesting proton pump inhibitor effect; negative for H pylori, intestinal metaplasia and dysplasia. C. Esophagogastric junction, biopsy: Squamocolumnar mucosa with mild chronic inflammation; negative for intestinal metaplasia and dysplasia. 11/20/23: Pt here for follow up after EGD. Reports persistent heartburn sensation. To recall EGD was done on PPI, pt did not remember to hold it. Despite this, some microscopic evidence of ongoing inflammation. 01/19/24: Reports no improvement with nexium at all. Has to add omeprazole 10 in the afternoon and then again in the evening. Has also been avoiding fatty meals and sodas. Takes one cup of coffee. To recall, no esophagitis noted on EGD. [place]ium swallow [place] [facility] in [place] without any HH or reflux despite provocative measures. [facility] Medical History Diabetes type 2, controlled History of anxiety History of trigger finger Hx of lipoma Asthma GERD (gastroesophageal reflux disease) Hypertension Hyperlipidemia Gastric volvulus Chronic low back pain Fibromyalgia Surgical History S/P trigger finger release Hx of cholecystectomy Hx of LASIK Hx of knee surgery Hx of shoulder surgery History of carpal tunnel release of both wrists Hx of abdominal surgery H/O gastric sleeve Hx of colonoscopy History of esophagogastroduodenoscopy (EGD) Family History Paternal Aunt Colon cancer HTN (hypertension) Family/Other Colon cancer Maternal Grandfather Colon cancer Heart attack Maternal Grandmother Colon cancer Heart attack Father HTN (hypertension) Maternal Aunt HTN (hypertension) Paternal Aunt HTN (hypertension) Mother Rheumatoid arthritis Social History Alcohol intake: former Patient Tobacco Use Status: Never used Tobacco Review of Systems Const All systems reviewed & are unremarkable except as noted in HPI and below Physical Exam Vital Signs: Last Vital Signs Pulse 107 H 01/19/24 12:11 BP 102/61 01/19/24 12:11 BMI result Body Mass Index 37.5 No apparent distress Nonicteric Abdomen soft, nondistended Alert and oriented x3, normal gait Assessment & Plan Assessment & Plan (1) GERD (gastroesophageal reflux disease): Code(s): K21.9 - Gastro-esophageal reflux disease without esophagitis Category: Medical Plan Reviewed with the patient the no esophagitis was noted endoscopically, however since the EGD was done on PPI, difficult to determine. Certainly some evidence of GERD on histological level. Not much response with nexium. Pt has added omeprazole. Suspect may have NERD vs esophageal hypersensitivity vs functional dyspepsia. Plan: - Advised to take omeprazole on empty stomach in the evening. Cont nexium in AM before breakfast. - EGD with wall - HOLD ppi x 14 days - Add sucralfate 1g QID x 14 days for symptomatic management. Follow up after EGD Medications: New sucralfate 1 g PO QIDACHS 14 days 60 tabs 0RF K21.9 - Gastro-esophageal reflux disease without esophagitis Coding Level of Care Code Est Pt Level 3 (13187) Diagnoses GERD (gastroesophageal reflux disease) K21.9
[2024-01-19 12:11] VITALS: BP 102/61; PULSE 107; BMI 37.5
== END 2024-01-19 13:19 | disposition home or self-care (01) ==
PROVIDERS: PCP Internal Medicine; Visit Provider Internal Medicine
DX: K21.9 Gastro-esophageal reflux disease without esophagitis (principal)
CPT/HCPCS: 99213

== ENCOUNTER → 2024-01-19 12:01 | Outpatient (BNVA) | payer MEDICARE, MEDICAID, SELFPAY | PROVIDERS: PCP Internal Medicine; Visit Provider Internal Medicine | DX: K21.9 Gastro-esophageal reflux disease without esophagitis (principal) | CPT/HCPCS: 99212 ==

== ENCOUNTER 2024-02-20 08:24 | Outpatient (REF) | payer MEDICARE, MEDICAID, SELFPAY ==
[2024-02-20 08:38] LABS: MANUAL DIFF FLAG NO
[2024-02-20 08:54] LABS: Basophils Percent Auto 0.5 % (0-2); Eosinophils Absolute Auto 0.1 X10*3/uL (0.0-0.4); Eosinophils Percent Auto 1.4 % (0-4); Imm Gran Abs Auto 0.08 X10*3/uL (0.00-0.03); Imm Gran Pct Auto 1.2 % (0.0-0.4); Lymphocytes Absolute Auto 1.4 X10*3/uL (1.2-4.9); Lymphocytes Percent Auto 21.6 % (20-40); Mean Corpuscular HGB Conc 33.3 g/dl (31.0-35.0); Mean Corpuscular Hemoglobin 32.6 pg (27.0-33.0); Mean Corpuscular Volume 97.8 fL (80.0-98.0); Mean Platelet Volume 10.5 fL (9.4-12.3); Monocytes Absolute Auto 0.5 X10*3/uL (0.1-1.2); Monocytes Percent Auto 7.5 % (2-11); Neutrophils Absolute Auto 4.4 x10*3/uL (2.0-8.3); Neutrophils Percent Auto 67.8 % (45-73); Platelet Count 236 X10*3/uL (160-400); Red Blood Count 3.68 X10*6/uL (4.20-5.50); Red Cell Distribution Width 13.5 % (11.0-16.0); White Blood Count 6.4 X10*3/uL (4.8-10.8)
[2024-02-20 09:34] LABS: Erythrocyte Sedimentation Rate 20 MM/HR (0-20)
[2024-02-20 09:47] LABS: Alanine Aminotransferase 20 U/L (0-31); Albumin Level 4.2 g/dL (3.5-5.0); Alkaline Phosphatase 58 U/L (39-117); Anion Gap 15 (12-20); Aspartate Amino Transferase 17 U/L (5-31); Bilirubin Total 0.5 mg/dL (0.0-1.0); Blood Urea Nitrogen 19 mg/dL (9-16); Calcium 9.5 mg/dL (8.4-10.2); Carbon Dioxide 25 mmol/L (22-29); Chloride 105 mmol/L (96-108); Estimated Glomerular Filt Rate > 60; Glucose Random 139 mg/dL (60-115); Sodium 141 mmol/L (135-145); Total Protein 6.9 g/dL (6.5-8.0)
== END 2024-02-20 08:25 | disposition home or self-care (01) ==
LOC: HO.LAB 08:24
PROVIDERS: PCP Internal Medicine; Visit Provider Student in an Organized Health Care Education/Training Program
DX: M06.00 Rheumatoid arthritis without rheumatoid factor, unspecified site (principal); Z79.631 Long term (current) use of antimetabolite agent
CPT/HCPCS: 36415; 80053; 85025; 85652; 86140

== ENCOUNTER 2024-03-12 14:31 | Outpatient (AMB) | payer MEDICARE, MEDICAID, SELFPAY ==
--- NOTE | 2024-03-12 14:33 | A.OFFVIS_ITS ---
Vital Signs 03/12/24 14:44 Height 5 ft Weight 184 lb 15.485 oz BMI 36.1 BP 112/64 Blood Pressure Location Lt brachial Position Sitting Pulse 108 H Pulse Source Pulse Oximeter Pulse Oximetry (%) 97 Oxygen Delivery Method Room Air Intake Visit Reasons: RA/CM Intake Note: Patient presents for RA. Stop taking medication prescribe to me because it all comes right up. Allergies seafood Allergy (Severe, Verified 03/12/24 14:38) Anaphylaxis iodine Allergy (Verified 03/12/24 14:38) Rash silicone Allergy (Verified 03/12/24 14:38) Blister Medication List - Last Reconciled 03/12/24 by Minerva Horn MD albuterol sulfate 90 mcg/actuation (Ventolin HFA) inhalation dorzolamide-timolol 22.3-6.8 mg/mL 1 drp ophthalmic (eye) BID ketoconazole 2% 1 appl topical 3XW nystatin topical TID PRN HPI Comments Details: 48-year-old female with newly diagnosed seronegative RA returns for follow-up. She states that she took methotrexate as prescribed until about 02/19. She stated that after about one-month of taking the methotrexate she started to feel some improvement with the pain and stiffness of her wrists and fingers. She has not been taking her meloxicam.. She believes it did not help Starting 02/19 has been vomiting all her meds. She can not keep any medications down. 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 Initial history: This is a 48-year-old female who presents for evaluation of diffuse pain. Patient states that she has neck cracking and pain. She also has lower back pain. She has history of L-spine surgery in the past. She was recently evaluated by neurosurgeon and deemed not to be a surgical candidate. She states that she has had bilateral hand pain for more than 20 years. 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 She had carpal tunnel syndrome in her 20s. She states that she had multiple carpal tunnel surgeries for both hands over the years. She has 2 trigger finger release procedures in the right hand and just had trigger finger release procedures for the left hand last week. She states that both her hands swell, usually worse in the morning, associated with morning stiffness improving after about 90 minutes. Improves with moving her hands. She was recently evaluated by Dr. Cardona and meloxicam 15 mg daily was prescribed, she has been taking it daily for the last 3 months without any improvement. Patient states that she can not take steroids due to her history of glaucoma. She believes that her mother has rheumatoid arthritis. She denies any skin rashes. She denies any history of DVT/PE. She had 2 pregnancies, 1 live and 1 stillbirth. No abortions or miscarriages PFSH Medical History Diabetes type 2, controlled History of anxiety History of trigger finger Hx of lipoma Asthma GERD (gastroesophageal reflux disease) Hypertension Hyperlipidemia Gastric volvulus Chronic low back pain Fibromyalgia Surgical History S/P trigger finger release Hx of cholecystectomy Hx of LASIK Hx of knee surgery Hx of shoulder surgery History of carpal tunnel release of both wrists Hx of abdominal surgery H/O gastric sleeve Hx of colonoscopy History of esophagogastroduodenoscopy (EGD) Family History Paternal Aunt Colon cancer HTN (hypertension) Family/Other Colon cancer Maternal Grandfather Colon cancer Heart attack Maternal Grandmother Colon cancer Heart attack Father HTN (hypertension) Maternal Aunt HTN (hypertension) Paternal Aunt HTN (hypertension) Mother Rheumatoid arthritis Social History Alcohol intake: former Patient Tobacco Use Status: Never used Tobacco Review of Systems GI Reports nausea and Reports vomiting Musc Reports arthralgias, Reports joint swelling and Reports stiffness Physical Exam Vital Signs: Last Vital Signs Pulse 108 H 03/12/24 14:44 BP 112/64 03/12/24 14:44 Pulse Ox 97 03/12/24 14:44 Oxygen Delivery Method Room Air 03/12/24 14:44 BMI result Body Mass Index 36.1 Const General: cooperative, healthy appearing and comfortable Nutritional Appearance: obese morbidly obese Orientation/consciousness: patient oriented x3 Limitations: no limitations HEENT Head: Yes normocephalic and Yes atraumatic Mouth: moist mucous membranes Resp Effort & Inspection: normal respiratory effort and able to speak in complete sentences Neuro General: patient oriented x3 Extrem Other: Right wrist pain with flexion-extension, no significant swelling Positive MCP squeeze test right hand Right 2nd through 5th PIP tenderness without swelling No DIP tenderness 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 Scattered bony erosions in the dorsal aspects of the carpal bones.? Findings are nonspecific.? With no evidence of hyperemia or synovitis.? Recommend radiographs of the hands and wrists for further evaluation.?? Heterogenously hypoechoic areas of the volar aspects of the carpal tunnels, likely postsurgical Hypoechoic thickened area volar to the 3rd flexor digitorum left hand, likely post surgical [place] [address] XRay Report Signed Patient: Jody Aranda MR#: [id number] : 1975 Acct:[id number] Age/Sex: 48 / F ADM Date: 11/13/23 Loc: HO.LAB Attending Dr: Minerva Horn MD Ordering Physician: Minerva Horn MD Date of Service: 11/13/23 Procedure(s): XR hand wrist LT Accession Number(s): [id number] cc: Madelin Heath MD; Minerva Horn MD~ EXAMINATION: XR hand wrist bilateral CLINICAL INFORMATION: Indication wrist pain COMPARISON: None TECHNIQUE: 4 views of the bilateral hands and wrists FINDINGS: RIGHT HAND AND WRIST: No fracture or dislocation. Joint spaces are maintained. No cortical erosion. Soft tissues are unremarkable. LEFT HAND AND WRIST: No fracture or dislocation. Joint spaces are maintained. No cortical erosion. Soft tissues are unremarkable. XR/XR hand wrist LT IMPRESSION: Unremarkable radiographs of the bilateral hands and wrists. Assessment & Plan Assessment & Plan (1) Bilateral hand pain: Code(s): M79.641 - Pain in right hand; M79.642 - Pain in left hand Category: Medical Plan: 48-year-old female presents for evaluation of bilateral hand pain for many years. She has had multiple surgeries for bilateral carpal tunnel syndrome as well as multiple procedures for trigger finger release. There is questionable family history of rheumatoid arthritis. On exam she has multiple tender joints. Bilateral hand and wrist ultrasound do not show any evidence of syn ovitis/tenosynovitis but shows scattered erosions at the carpal bones. Bilateral hand x-rays are unremarkable however. Comprehensive Serology is negative and inflammatory markers are normal. I treated patient as seronegative RA, she took methotrexate after one-month she felt some improvement in her pain and stiffness of her hands. She took it for 2 months in total then has not been able to keep any of her medications down. She is starting to have recurring pain and stiffness of her hands At this time she is unable to tolerate oral meds We discussed switching to subcu methotrexate. Patient is afraid of needles and afraid to do the injection herself but is willing to come to the clinic weekly for injection. I will look into potentially scheduling weekly methotrexate injections. Advised patient to let us know once her nausea/vomiting improves and then restart oral methotrexate Follow-up in 3 months (2) long-term methotrexate user: Code(s): Z79.631 - long-term (current) use of antimetabolite agent Category: Medical Plan: Monitor safety labs. 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
[2024-03-12 14:44] VITALS: BP 112/64; PULSE 108; O2SAT 97; BMI 36.1
== END 2024-03-12 15:11 | disposition home or self-care (01) ==
PROVIDERS: PCP Internal Medicine; Visit Provider Student in an Organized Health Care Education/Training Program
DX: M79.641 Pain in right hand (principal); M79.642 Pain in left hand; Z79.631 Long term (current) use of antimetabolite agent
CPT/HCPCS: 99214

== ENCOUNTER → 2024-03-12 14:31 | Outpatient (BNVA) | payer MEDICARE, MEDICAID, SELFPAY | PROVIDERS: PCP Internal Medicine; Visit Provider Student in an Organized Health Care Education/Training Program | DX: M79.641 Pain in right hand (principal); M79.642 Pain in left hand; Z79.631 Long term (current) use of antimetabolite agent | CPT/HCPCS: 99212 ==

== ENCOUNTER 2024-06-12 07:54 | Outpatient (AMB) | payer MEDICARE, MEDICAID, SELFPAY ==
--- NOTE | 2024-06-12 08:03 | A.OFFVIS_ITS ---
Vital Signs 06/12/24 08:09 Height 5 ft Weight 172 lb 9.951 oz BMI 33.7 BP 90/62 Blood Pressure Location Rt brachial Position Sitting Pulse 84 Pulse Source Pulse Oximeter Pulse Oximetry (%) 99 Oxygen Delivery Method Room Air Intake Visit Reasons: RA/CM Intake Note: Patient presents for RA. Allergies seafood Allergy (Severe, Verified 06/12/24 08:06) Anaphylaxis iodine Allergy (Verified 06/12/24 08:06) Rash silicone Allergy (Verified 06/12/24 08:06) Blister Medication List - Last Reconciled 06/12/24 by Minerva Horn MD albuterol sulfate 90 mcg/actuation (Ventolin HFA) inhalation dorzolamide-timolol 22.3-6.8 mg/mL 1 drp ophthalmic (eye) BID esomeprazole magnesium 20 mg PO DAILY ketoconazole 2% 1 appl topical 3XW lisinopril 5 mg PO DAILY nystatin topical TID PRN rosuvastatin 10 mg PO BEDTIME HPI Comments Details: 49-year-old female with newly diagnosed seronegative RA returns for follow-up. She has been taking methotrexate regularly for the last 6 weeks. She has not noticed much improvement. She has difficulty tolerating oral meds due to significant GI upset. States that she continues to have pain and stiffness in both hands. She states that both her hands are swollen and stiff for about an hour in the morning. Initial history: This is a 48-year-old female who presents for evaluation of diffuse pain. Patient states that she has neck cracking and pain. She also has lower back pain. She has history of L-spine surgery in the past. She was recently evaluated by neurosurgeon and deemed not to be a surgical candidate. She states that she has had bilateral hand pain for more than 20 years. 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 She had carpal tunnel syndrome in her 20s. She states that she had multiple carpal tunnel surgeries for both hands over the years. She has 2 trigger finger release procedures in the right hand and just had trigger finger release procedures for the left hand last week. She states that both her hands swell, usually worse in the morning, associated with morning stiffness improving after about 90 minutes. Improves with moving her hands. She was recently evaluated by Dr. Cardona and meloxicam 15 mg daily was prescribed, she has been taking it daily for the last 3 months without any improvement. Patient states that she can not take steroids due to her history of glaucoma. She believes that her mother has rheumatoid arthritis. She denies any skin rashes. She denies any history of DVT/PE. She had 2 pregnancies, 1 live and 1 stillbirth. No abortions or miscarriages [facility] Medical History Diabetes type 2, controlled History of anxiety History of trigger finger Hx of lipoma Asthma GERD (gastroesophageal reflux disease) Hypertension Hyperlipidemia Gastric volvulus Chronic low back pain Fibromyalgia Surgical History S/P trigger finger release Hx of cholecystectomy Hx of LASIK Hx of knee surgery Hx of shoulder surgery History of carpal tunnel release of both wrists Hx of abdominal surgery H/O gastric sleeve Hx of colonoscopy History of esophagogastroduodenoscopy (EGD) Family History Paternal Aunt Colon cancer HTN (hypertension) Family/Other Colon cancer Maternal Grandfather Colon cancer Heart attack Maternal Grandmother Colon cancer Heart attack Father HTN (hypertension) Maternal Aunt HTN (hypertension) Paternal Aunt HTN (hypertension) Mother Rheumatoid arthritis Social History Alcohol intake: former Patient Tobacco Use Status: Never used Tobacco Female Reproductive History Menstrual Total pregnancies: 2 Number of Living Children: 1 Ab induced: 0 Ab spontaneous: 0 Review of Systems Musc Reports arthralgias, Reports joint swelling and Reports stiffness Skin/Breast Reports unusual bruising Physical Exam Vital Signs: Last Vital Signs Pulse 84 06/12/24 08:09 BP 90/62 06/12/24 08:09 Pulse Ox 99 06/12/24 08:09 Oxygen Delivery Method Room Air 06/12/24 08:09 BMI result Body Mass Index 33.7 Const General: cooperative, healthy appearing and comfortable Nutritional Appearance: obese morbidly obese Orientation/consciousness: patient oriented x3 Limitations: no limitations HEENT Head: Yes normocephalic and Yes atraumatic Mouth: moist mucous membranes Resp Effort & Inspection: normal respiratory effort and able to speak in complete sentences Neuro General: patient oriented x3 Extrem Other: Right wrist pain with flexion-extension, no significant swelling Right 2nd MCP tenderness left 2nd and 3rd MCP tenderness Right 2nd through 5th PIP tenderness without swelling No DIP tenderness 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 Scattered bony erosions in the dorsal aspects of the carpal bones.? Findings are nonspecific.? With no evidence of hyperemia or synovitis.? Recommend radiographs of the hands and wrists for further evaluation.?? Heterogenously hypoechoic areas of the volar aspects of the carpal tunnels, likely postsurgical Hypoechoic thickened area volar to the 3rd flexor digitorum left hand, likely post surgical [address] [address] XRay Report Signed Patient: Jody Aranda MR#: [id number] : 1975 Acct:[id number] Age/Sex: 48 / F ADM Date: 11/13/23 Loc: HO.LAB Attending Dr: Minerva Horn MD Ordering Physician: Minerva Horn MD Date of Service: 11/13/23 Procedure(s): XR hand wrist LT Accession Number(s): [id number] cc: Madelin Heath MD; Minerva Horn MD~ EXAMINATION: XR hand wrist bilateral CLINICAL INFORMATION: Indication wrist pain COMPARISON: None TECHNIQUE: 4 views of the bilateral hands and wrists FINDINGS: RIGHT HAND AND WRIST: No fracture or dislocation. Joint spaces are maintained. No cortical erosion. Soft tissues are unremarkable. LEFT HAND AND WRIST: No fracture or dislocation. Joint spaces are maintained. No cortical erosion. Soft tissues are unremarkable. XR/XR hand wrist LT IMPRESSION: Unremarkable radiographs of the bilateral hands and wrists. Assessment & Plan Assessment & Plan (1) Bilateral hand pain: Code(s): M79.641 - Pain in right hand; M79.642 - Pain in left hand Category: Medical Plan: 48-year-old female presents for evaluation of bilateral hand pain for many years. She has had multiple surgeries for bilateral carpal tunnel syndrome as well as multiple procedures for trigger finger release. There is questionable family history of rheumatoid arthritis. On exam she has multiple tender joints. Bilateral hand and wrist ultrasound do not show any evidence of synovitis/tenosynovitis but shows scattered erosions at the carpal bones. Bilateral hand x-rays are unremarkable however. Comprehensive Serology is negative and inflammatory markers are normal. Patient took methotrexate regularly for 6 weeks without improvement. Continues to have bilateral hand swelling and morning stiffness lasting 1 hour. Discontinue methotrexate at this time. I will order left hand MRI to evaluate for inflammatory arthritis. Follow-up after MRI is completed Plan I spent 16 minutes reviewing patient's chart, evaluating patient, ordering diagnostic workup, counseling patient and documenting in the chart Orders: Orders MR hand LT wo/w con Today M79.642 - Pain in left hand Medications: Discontinued folic acid Discontinued Reason: Doctor's Order 1 mg PO DAILY 90 tabs 0RF methotrexate sodium Discontinued Reason: Doctor's Order 15 mg (6 x 2.5 mg) PO QWEEK 36 tabs 0RF Coding Level of Care Code Est Pt Level 3 (18407) Diagnoses Bilateral hand pain M79.641; M79.642
[2024-06-12 08:09] VITALS: BP 90/62; PULSE 84; O2SAT 99; BMI 33.7
== END 2024-06-12 08:24 | disposition home or self-care (01) ==
LOC: HO.RHE 07:55
PROVIDERS: PCP Internal Medicine; Visit Provider Student in an Organized Health Care Education/Training Program
DX: M79.641 Pain in right hand (principal); M79.642 Pain in left hand
CPT/HCPCS: 99213

== ENCOUNTER → 2024-06-12 07:54 | Outpatient (BNVA) | payer MEDICARE, MEDICAID, SELFPAY | PROVIDERS: PCP Internal Medicine; Visit Provider Student in an Organized Health Care Education/Training Program | DX: M79.641 Pain in right hand (principal); M79.642 Pain in left hand | CPT/HCPCS: 99212 ==

== ENCOUNTER 2024-06-29 15:59 | Outpatient (REF) | payer MEDICARE, MEDICAID, SELFPAY ==
--- NOTE | ~2024-06-29 | MR_ITS ---
EXAMINATION: MRI HAND WITHOUT CONTRAST, LEFT CLINICAL INFORMATION: Evaluate for synovitis/tenosynovitis/erosive changes. Pain. COMPARISON: X-ray 11/13/2023. TECHNIQUE: MRI of the wrist without contrast is performed in a 1.5 Marlene high-field scanner. Patient refused intravenous contrast FINDINGS: BONE/JOINTS: Bony alignment is anatomic. No evidence of acute fracture or dislocation. No significant joint space narrowing is evident on MRI. No erosive changes identified. No suspicious lytic or blastic lesions. Cystic focus volar to the distal radius measuring 6 mm transverse, could reflect a synovial recess or small ganglion cyst. No significant wrist joint effusion. No significant distal radioulnar joint effusion. MUSCLE/TENDONS: Mild extensor carpi radialis longus and brevis peritendinitis/tenosynovitis. The extensor carpi ulnaris tendon is partially draped over the ulnar aspect of the distal ulnar bony groove, which could be related to positioning versus subsheath tear. The tendon appears intact. No evidence of significant tenosynovitis. The tendons grossly appear intact. LIGAMENTS: Evaluation of the intrinsic ligaments of the wrist joint are limited on this large [id number] study. The TFCC grossly appears intact. Scapholunate, lunotriquetral ligaments grossly appear intact. MEDIAN NERVE: Evaluation limited on this large [id number] study. The signal appears within normal limits. Gu[place]'s Canal: No mass lesion is appreciated. MR/MR hand LT wo con IMPRESSION: 1. No evidence of acute osseous fracture or malalignment. No significant arthropathy or erosive changes is evident by MRI. 2. A 6 mm cystic focus volar to the distal radius, could reflect a synovial recess or ganglion cyst. 3. Mild extensor carpi radialis longus and brevis peritendinitis/tenosynovitis. 4. Ulnar subluxation of the extensor carpi ulnaris tendon, could be related to positioning versus subsheath tear. 5. Limited evaluation of the intrinsic ligaments of the wrist. Electronically signed by: Sundeep Austin MD 07/12/2024 01:24 PM EST
== END 2024-06-29 16:00 | disposition home or self-care (01) ==
LOC: HO.MRI 15:59
PROVIDERS: PCP Internal Medicine; Visit Provider Student in an Organized Health Care Education/Training Program
DX: M79.642 Pain in left hand (principal)
CPT/HCPCS: 73218

== ENCOUNTER 2024-07-17 13:43 | Outpatient (AMB) | payer MEDICARE, MEDICAID, SELFPAY ==
[2024-07-17 13:48] VITALS: BP 102/64; PULSE 92; BMI 34.1
--- NOTE | 2024-07-17 13:48 | A.OFFVIS_ITS ---
Vital Signs 07/17/24 13:48 Height 5 ft Weight 174 lb 6.17 oz BMI 34.1 BP 102/64 Blood Pressure Location Rt brachial Position Sitting Pulse 92 Pulse Source Pulse Oximeter Intake Visit Reasons: ?RA/lm Intake Note: Patient present today for RA office visit. Accompanied by: Self / Same As Patient Allergies seafood Allergy (Severe, Verified 07/17/24 13:57) Anaphylaxis iodine Allergy (Verified 07/17/24 13:57) Rash silicone Allergy (Verified 07/17/24 13:57) Blister Medication List - Last Reconciled 07/17/24 by Minerva Horn MD albuterol sulfate 90 mcg/actuation (Ventolin HFA) inhalation dorzolamide-timolol 22.3-6.8 mg/mL 1 drp ophthalmic (eye) BID esomeprazole magnesium 20 mg PO DAILY glimepiride 4 mg PO DAILY ketoconazole 2% 1 appl topical 3XW lisinopril 5 mg PO DAILY nystatin topical TID PRN rosuvastatin 10 mg PO BEDTIME HPI Comments Details: 49-year-old female likely seronegative RA returns for follow-up after completion of her left hand MRI. Continues to have pain in both wrists especially the left wrist as well as low back pain. She also has pain and swelling of her hands and wrists in the morning. Initial history: This is a 48-year-old female who presents for evaluation of diffuse pain. Patient states that she has neck cracking and pain. She also has lower back pain. She has history of L-spine surgery in the past. She was recently evaluated by neurosurgeon and deemed not to be a surgical candidate. She states that she has had bilateral hand pain for more than 20 years. She used to work at a [employer]. She had carpal tunnel syndrome in her 20s. She states that she had multiple carpal tunnel surgeries for both hands over the years. She has 2 trigger finger release procedures in the right hand and just had trigger finger release procedures for the left hand last week. She states that both her hands swell, usually worse in the morning, associated with morning stiffness improving after about 90 minutes. Improves with moving her hands. She was recently evaluated by Dr. Cardona and meloxicam 15 mg daily was presc ribed, she has been taking it daily for the last 3 months without any improvement. Patient states that she can not take steroids due to her history of glaucoma. She believes that her mother has rheumatoid arthritis. She denies any skin rashes. She denies any history of DVT/PE. She had 2 pregnancies, 1 live and 1 stillbirth. No abortions or miscarriages [facility] Medical History (Updated 07/17/24 @ 14:30 by Minerva Horn MD) Diabetes type 2, controlled History of anxiety History of trigger finger Hx of lipoma Asthma GERD (gastroesophageal reflux disease) Hypertension Hyperlipidemia Gastric volvulus Chronic low back pain Fibromyalgia Surgical History S/P trigger finger release Hx of cholecystectomy Hx of LASIK Hx of knee surgery Hx of shoulder surgery History of carpal tunnel release of both wrists Hx of abdominal surgery H/O gastric sleeve Hx of colonoscopy History of esophagogastroduodenoscopy (EGD) Family History Paternal Aunt Colon cancer HTN (hypertension) Family/Other Colon cancer Maternal Grandfather Colon cancer Heart attack Maternal Grandmother Colon cancer Heart attack Father HTN (hypertension) Maternal Aunt HTN (hypertension) Paternal Aunt HTN (hypertension) Mother Rheumatoid arthritis Social History Alcohol intake: former Patient Tobacco Use Status: Never used Tobacco Review of Systems [facility] Reports back pain, Reports arthralgias, Reports joint swelling and Reports stiffness Physical Exam Vital Signs: Last Vital Signs Pulse 92 07/17/24 13:48 BP 102/64 07/17/24 13:48 BMI result Body Mass Index 34.1 Const General: cooperative, healthy appearing and comfortable Nutritional Appearance: obese morbidly obese Orientation/consciousness: patient oriented x3 Limitations: no limitations HEENT Head: Yes normocephalic and Yes atraumatic Mouth: moist mucous membranes Resp Effort & Inspection: normal respiratory effort and able to speak in complete sentences Neuro General: patient oriented x3 Extrem Other: Right wrist tenderness and pain with flexion-extension, no significant swelling Left wrist tenderness dorsally and pain with flexion and extension Tenderness throughout both forearms Right 2nd MCP and 3rd tenderness left 2nd and 3rd MCP tenderness Right 2nd through 5th PIP tenderness without swelling No DIP tenderness Limited range of motion left shoulder Normal nailfold capillaroscopy Results Reviewed Results Reviewed: MR/MR hand LT wo con IMPRESSION: 1. No evidence of acute osseous fracture or malalignment. No significant arthropathy or erosive changes is evident by MRI. 2. A 6 mm cystic focus volar to the distal radius, could reflect a synovial recess or ganglion cyst. 3. Mild extensor carpi radialis longus and brevis peritendinitis/tenosynovitis. 4. Ulnar subluxation of the extensor carpi ulnaris tendon, could be related to positioning versus subsheath tear. 5. Limited evaluation of the intrinsic ligaments of the wrist. Electronically signed by: Sundeep Austin MD 07/12/2024 01:24 PM EST Assessment & Plan Assessment & Plan (1) Seronegative rheumatoid arthritis: Comment: -ve RF -ve CCP dx 02/2024 MTX 02/2024 DC 04/2024 ineffective Code(s): M06.00 - Rheumatoid arthritis without rheumatoid factor, unspecified site Category: Medical Plan: 49-year-old female presents for evaluation of bilateral hand pain for many years. She has pain swelling and morning stiffness of her hands and wrists. She has had multiple surgeries for bilateral carpal tunnel syndrome as well as multiple procedures for trigger finger release. There is questionable family history of rheumatoid arthritis. On exam she has multiple tender joints. Left hand MRI shows mild tenosynovitis. She took 15 mg methotrexate weekly for 6-8 weeks without improvement. We will need to switch DMARDs. Discussed risks and benefits of Enbrel. Patient agreed to proceed. Will start prior authorization for Enbrel [facility] before next visit in 3 months (2) High risk medication use: Code(s): Z79.899 - Other senior living (current) drug therapy Category: Medical Plan: Side effects of Enbrel were discussed with the patient in detail including increased risk of infection, demyelinating disease, reactivation of latent TB, possible increased risk of solid and skin tumors. Patient fully aware. Advised patient to seek medical care [facility] if patient has an infection and advised patient to stop the medication until the infection is resolved. Plan I spent 26 minutes reviewing patient's chart, evaluating patient, ordering diagnostic workup, counseling patient and documenting in the chart Coding Level of Care Code Est Pt Level 4 (13072) Complex EM visit Add On G2211 Diagnoses Seronegative rheumatoid arthritis M06.00 High risk medication use Z79.899
== END 2024-07-17 14:23 | disposition home or self-care (01) ==
PROVIDERS: PCP Internal Medicine; Visit Provider Student in an Organized Health Care Education/Training Program
DX: M06.00 Rheumatoid arthritis without rheumatoid factor, unspecified site (principal); Z79.899 Other long term (current) drug therapy
CPT/HCPCS: 99214; G2211

== ENCOUNTER → 2024-07-17 13:43 | Outpatient (BNVA) | payer MEDICARE, MEDICAID, SELFPAY | PROVIDERS: PCP Internal Medicine; Visit Provider Student in an Organized Health Care Education/Training Program | DX: M06.00 Rheumatoid arthritis without rheumatoid factor, unspecified site (principal); Z79.899 Other long term (current) drug therapy | CPT/HCPCS: 99212 ==

== ENCOUNTER 2025-05-20 14:28 | Outpatient (REF) | payer MEDICARE, MEDICAID, SELFPAY ==
--- OUTSIDE RECORDS SUMMARY | 2011-11-14 | XMS_ITS | Encounter Summary ---
Author Organization [facility] Address [address] [place] [phone] Phone Care Team Providers Care Flue Gas Analyst Name Role Phone Unavailable Primary Care Provider Unavailabl e Encounter Details Date Type Department Care Team (Late st Contact Info) Description 11/14/2011 Hospital Encounter [facility] [address] [place] [address] Kirk Silva MD [address] [place] [address] [email or web address] Social History Tobacco Use Types Packs/Day Years Used Date Smoking Tobacco: Never Education Answer Date Recorded Are you interested in more education? Not on kelechi e 04/25/2024 Are you concerned about learning? Not on file 04/25/2024 No 04/25/2024 No 04/25/2024 Digital Access Answer Date Recorded No 04/25/2024 No 04/25/2024 Reliable internet access at home? Not on file 04/25/2024 Device with a working camera? Not on file Comments Unknown Sex and Gender Information Value Date Recorded Sex Assigned at Female 04/26/2024 9:19 AM EDT Legal Sex Female 3:49 PM EDT Gender Identity Female 04/26/2024 9:19 AM EDT Sexual Orientation Straight 04/26/2024 9: 19 AM EDT documented as of this encounter Plan of Treatment Not on file documented as of this encounter Procedures Procedure Name Priority Date/Time Associated Diagnosis Comments MRI SPINE MUSCULOSKELETAL FOCUS OUTSIDE (NO INTERPRETATION) Routine 11/14/2011 12:00 AM EDT documented in this encounter Results * MRI Spine (Bone) Outside (No Interpretation) (11/14/2011 12:00 AM EDT) Narrative [facility] [place] [place] - 11/12/2019 2:59 PM EDT This study is for PACS storage only and not for interpretation. us Kirk Silva MD IMG OUTSIDE IMAGING W/OUT INTE RPRETATION Final Result [facility] [place] [facility] [place] documented in this encounter Visit Diagnoses Not on filedocumented in this encounter Additional Source Comments The information contained in this document represents components of the legal health record. It is not the complete legal health record.[facility]
--- OUTSIDE RECORDS SUMMARY | 2025-05-20 17:49 | XMS_ITS | Clinical Summary ---
Author Organization [facility] Address [address] [id number] Phone Care Team Providers Care Chemical Process Project Engineer Name Role Phone Pcp, Unknown Primary Care Provider UnavailSyed Villa MD Unavailable System, Provider Not In PhD Unavailable Unav ailable Allergies Active Allergy Reactions Criticality Noted Date Comments Chlorhexidine Gluconate 04/22/2020 Fish Containing Products Hives,Rash,Swel ling ,Other (See Comments) 08/04/2014 difficulty breathing Iodine 04/22/2020 Rash and breathing issues Silicone Rash 09/05/2014 Medications dorzolamide-eileen loL (COSOPT) 22.3-6.8 mg/mL ophthalmic solution Place 1 drop into each eye 2 (two) times a day. Active lisinopril (PRINIVIL,ZESTRI L) 5 MG tablet Take 5 mg by mouth daily. Active rosuvastatin (CRESTOR) 10 MG tablet Take 10 mg by mouth daily. Active albuterol 90 mcg/actuation inhaler Inhale 2 puffs into the lungs every 6 (six) hours as needed for wheezing. Active Active Problems Problem Noted Date Diagnosed Date Uncoded Normal retinal function by ERGs 09/05/19 15 Overview (10/03/2014): Normal retinal function by ERGs; Bilateral; Full-field and multifocal ERGs - WNL Glaucoma 09/05/2014 Overview (10/03/2014): Glaucoma - OU; Bilateral Visual field defect 09/05/2014 Overview (10/03/2014): Visual field defect - OU; Bilateral Migraine 08/04/2014 Overview (10/03/2014): Migraine Family History Medical History Relation Comments Diabetes Father Diabetes mellitu s Coronary artery disease Mother Coronary Artery Disease Decreased Bone Mass Mother Osteoporosis Relation Status Comments Father Mother Social History Tobacco Use Types Packs/Day Years Used Date Smoking Tobacco: Never Smokeless Tobacco: Never Education Answer Date Recorded Are [...] Orientation Straight 04/26/2024 9: 19 AM EDT Last Filed Vital Signs Vital Sign Reading Time Taken Comments Blood Pressure 121/75 04/22/2020 3:33 PM EDT Pulse 92 04/22/2020 3:33 PM EDT Temperature 36.5 C (97.7 F) 05/05/2020 10:12 AM EDT Respiratory Rate - - Oxygen Saturation 97% 04/22/2020 3:33 PM EDT Inhaled Oxygen Concentration - - Weight 93.9 kg (207 lb) 05/05/2020 10:12 AM EDT Height 154.9 cm (5' 1 ) 05/05/2020 10:12 AM EDT Body Mass Index 39.11 05/05/2020 10:12 AM EDT Plan of Treatment Health Maintenance Due Date Last Done Comments Adult Td,Tdap Booster 1974 CREATININE LEVEL 1974 LIPID PANEL 1974 POTASSIUM LEVEL 1974 DEPRESSION SCREENING 1986 HEPATITIS C SCREENING 1992 HIV ONE-TIME SCREENING (18-6 5 YEARS) 1992 PAP SMEAR 1995 MAMMOGRAM 2014 COLOGUARD 2019 COLONOSCOPY 2019 COLORECTAL CANCER SCREENING 2019 FIT TEST 2019 FOBT 2019 SIGMOIDOSCOPY 2019 VIRTUAL COLONOSCOPY 2019 PNEUMOCOCCAL VACCINES (50+ y ears) (1 of 1 - PCV) 2024 ZOSTER VACCINES (1 of 2) 2024 INFLUENZA VACCINE (#1) 2025 COVID-19 VACCINE (2 - 2024-2 6 season) 2025 11/09/2020 RSV VACCINE (1 - 1-dose 75+ series) 2049 SMOKING STATUS SCREENING (On ce After 26 Yrs) Completed 04/22/2020 HEPATITIS A VACCINES Aged Out No long er eligible based on patient's age to complete this topic HIB VACCINES Aged Out No longer eligi ble based on patient's age to complete this topic MENINGOCOCCAL VACCINES (ACWY) Aged Out No longer eligible based on patient's age to complete this topic MENINGOCOCCAL VACCINES (B) Aged Out N o longer eligible based on patient's age to complete this topic Medical Devices Not on file Insurance MEDICARE PART A & B [facility] MEDICARE PART A & B [place] A & B [employer] MEDICARE [facility] A & B [facility] MEDICARE PART A & B [facility] [address] [place] [address] [place] [address] [place] [address] [place] [address] [place] [address] [place] [address] [facility] Care Teams Chemical Process Project Engineer Relationship Specialty Start Date End Date Pcp, Unknown PCP - General 04/25/24 Syed Armando MD [address] [place] [address] Internal Medicine 04/25/24 System, Provider Not In, [place] [address] 04/14/20 Additional Source Comments The information contained in this document represents components of the legal health record. It is not the complete legal health record.[facility]
--- OUTSIDE RECORDS SUMMARY | 2025-05-20 17:49 | XMS_ITS | Clinical Summary ---
Author Organization [facility] Address [address] [place] [address] Care Team Providers Care Industrial Ecologist Name Role Phone Madelin Heath MD Primary Care Provider [phone] Allergies Active Allergy Reactions Criticality Noted Date Comments Cephalexin Rash 11/29/2022 rashyeast infection Chlorhexidine Rash 11/29/2022 Chlorhexidine Gluconate Unknown 04/22/2020 Cortisone Glaucoma 11/29/2022 patient has glaucoma. patient has glaucoma. Fish Containing Products Hives,Other (see comments),Rash,Swelli ng High 08/04/2014 difficulty breathing Fish,Bora,Flax Oils-Om3,6,9no1 Anaphylaxis High 11/29/2022 Iodine Rash 04/22/2020 Rash and breathing issues Silicone Rash 09/05/2014 Medications hydrOXYzine HCL (ATARAX) 10 mg tablet Take 10 mg by mouth 4 times a day as needed. 3 Active lisinopriL (PRINIVIL,ZESTR IL) 5 mg tablet Take 5 mg by mouth once a day. 2 Active Savella 50 mg tablet Take 50 mg by mouth 2 times a day. 3 Active omeprazole (PriLOSEC) 20 mg capsule Take 20 mg by mouth 2 times a day. 3 Active rosuvastatin (CRESTOR) 10 mg tablet Take 10 mg by mouth once a day. 2 Active cyclobenzaprine (FLEXERIL) 10 mg tablet Take 10 mg by mouth 3 times a day as needed. 3 Active acetaminophen (TYLENOL) 500 mg tablet Take 500 mg by mouth every 6 hours as needed. 3 Active clotrimazole-be tamethasone (LOTRISONE) cream Apply topically to the affected area 2 times a day as needed. Active multivitamin capsule Take 1 capsule by mouth once a day. Active dorzolamide-stefan oloL (COSOPT) 22.3-6.8 mg/mL ophthalmic solutionIndicat ions:Glaucoma suspect of both eyes,Ocular hypertension, bilateral Instill 1 drop into both eyes 2 times a day. 30 mL 4 Active Active Problems Problem Noted Date Diagnosed Date Chronic back pain 02/02/2023 Depressed 02/02/2023 Diabetes 02/02/2023 Class 1 obesity 02/02/2023 Binge eating disorder 02/02/2023 Anxiety 02/02/2023 Asthma 02/02/2023 Major depression, recurrent, chronic 02/02/2023 Hyperlipidemia 02/02/2023 HTN (hypertension) 02/02/2023 Severe obesity (BMI 35.0-39.9) with comorbidity 02/02/2023 Glaucoma 09/05/2014 Overview (02/02/2023): Glaucoma - OU; Bilateral Migraine 08/04/2014 Overview (02/02/2023): Migraine Social History Tobacco Use Types Packs/Day Years Used Date Smoking Tobacco: Never Smokeless Tobacco: Never Tobacco Cessation:Counseling Given: Not Answered Comments Unknown Sex and Gender Information Value Date Recorded Sex Assigned at Not on file Legal Sex Female 8:21 AM EST Gender Identity Not on file Sexual Orientation Not on file Last Filed Vital Signs Vital Sign Reading Time Taken Comments Blood Pressure - - Pulse - - Temperature - - Respiratory Rate - - Oxygen Saturation - - Inhaled Oxygen Concentration - - Weight 83.2 kg (183 lb 6.8 oz) 11/29/2022 11:08 AM EDT Height 156.7 cm (5' 1.7 ) 11/29/2022 11:08 AM ED T Body Mass Index 33.88 11/29/2022 11:08 AM EDT Plan of Treatment Health Maintenance Due Date Last Done Comments Basic Metabolic Panel 1974 Cervical Cancer Screening 1974 Cologuard 1974 Colon Cancer Screening 1974 Colonoscopy 1974 FOBT / Fit Test 1974 HIV Screening 1974 HPV and Pap Smear 1974 Hemoglobin A1C 1974 Hepatitis C Screening 1974 Pap Smear 1974 Sigmoidoscopy 1974 Medicare AWV 1975 Urine Microalbumin 1984 Hepatitis B Vaccines (1 of 3 - 19+ 3-dose series) 1993 Pneumococcal Vaccine: 50+ Ye ars (1 of 2 - PCV) 1993 Mammogram 2014 Ophthalmology Exam 02/03/2024 02/02/2023, 0 02/02/2023, 02/02/2023, Additional history exists Zoster Vaccines (1 of 2) 2024 Alcohol/Substance Use Screening 08/14/2024 Depression Screening and Follow-Up 08/14/2024 Social Drivers of Health Yomaira ual Screening 08/14/2024 COVID-19 Vaccine (5 - 2024-2 6 season) 2025 05/10/2022, 06/01/2021, 11/30/2020, Additional history exists Influenza Vaccine (#1) 2025 , 05/10/2022, 04/29/2021, Additional history exists DTaP,Tdap,and Td Vaccines (2 - Td or Tdap) 02/24/2031 02/24/2021 RSV Vaccine (60+ years old a nd patients) (1 - 1-dose 75+ series) 2049 Insurance [id number] MEDICAID MEDICARE Care Teams Industrial Ecologist Relationship Specialty Start Date End Date Madelin Heath MD [facility] [place] [address] PCP - General Internal Medicine 08/18/22
[2025-05-20 17:58] LABS: MANUAL DIFF FLAG NO
[2025-05-20 18:19] LABS: Hematocrit 39.5 % (37.0-47.0); Hemoglobin 13.1 g/dl (12.0-16.0); Imm Gran Abs Auto 0.03 X10*3/uL (0.00-0.03); Imm Gran Pct Auto 0.4 % (0.0-0.4); Lymphocytes Absolute Auto 2.2 X10*3/uL (1.2-4.9); Mean Corpuscular HGB Conc 33.2 g/dl (31.0-35.0); Mean Corpuscular Hemoglobin 31.5 pg (27.0-33.0); Mean Corpuscular Volume 95.0 fL (80.0-98.0); NRBC Abs Auto 0.000 X10*3/uL (0.0-0.012); NRBC Pct Auto 0.0 /100WBC (0.0-0.2); Platelet Count 283 X10*3/uL (160-400); Red Blood Count 4.16 X10*6/uL (4.20-5.50); White Blood Count 8.5 X10*3/uL (4.8-10.8)
[2025-05-20 18:31] LABS: Alanine Aminotransferase 10 U/L (0-31); Albumin Level 4.7 g/dL (3.5-5.0); Alkaline Phosphatase 71 U/L (39-117); Anion Gap 15 (12-20); Aspartate Amino Transferase 20 U/L (5-31); Blood Urea Nitrogen 21 mg/dL (9-16); Calcium 9.6 mg/dL (8.4-10.2); Carbon Dioxide 23 mmol/L (22-29); Chloride 107 mmol/L (96-108); Estimated Glomerular Filt Rate > 60; Potassium 3.5 mmol/L (3.3-5.1); Sodium 141 mmol/L (135-145); Total Protein 7.3 g/dL (6.5-8.0)
[2025-05-21 08:17] LABS: HBS Num1 1.13 mIU/mL (0-7.99); HBc Num1 0.05 S/CO (0.00-0.79); HBsAGNum1 0.30 S/CO (0.00-0.99); Hepatitis B Surface Antigen Negative (Negative); ~HepC Num1 0.04 S/CO (0.00-0.79); ~Hepatitis B Surface Antibody NONREACTIVE (Nonreactive); ~Hepatitis C Antibody Nonreactive (Nonreactive)
[2025-05-23 08:13] LABS: TS Negative Control Passed; TS Panel A 1; TS Panel B 0; TS Positive Control Passed; TSpotTB Negative (Negative)
== END 2025-05-20 14:29 | disposition home or self-care (01) ==
LOC: HO.HKASLDS 14:28
PROVIDERS: PCP Internal Medicine; Visit Provider Student in an Organized Health Care Education/Training Program
DX: Z11.1 Encounter for screening for respiratory tuberculosis (principal); Z79.899 Other long term (current) drug therapy
CPT/HCPCS: 36415; 80053; 85025; 85652; 86140; 86481; 86704; 86706; 86803; 87340

== ENCOUNTER 2025-05-22 07:18 | Outpatient (AMB) | payer MEDICARE, MEDICAID, SELFPAY ==
--- NOTE | 2025-05-22 07:41 | A.OFFVIS_ITS ---
Vital Signs 05/22/25 07:49 Height 5 ft Weight 156 lb 4.924 oz BMI 30.5 BP 115/78 Blood Pressure Location Lt brachial Position Sitting Pulse 91 Pulse Source Pulse Oximeter Pulse Oximetry (%) 98 Oxygen Delivery Method Room Air Intake Visit Reasons: RA Intake Note: Patient presents for RA follow up. Allergies seafood Allergy (Severe, Verified 05/22/25 07:47) Anaphylaxis iodine Allergy (Verified 05/22/25 07:47) Rash silicone Allergy (Verified 05/22/25 07:47) Blister Medication List - Last Reconciled 05/22/25 by Brenda Zamudio MD albuterol sulfate 90 mcg/actuation (Ventolin HFA) inhalation dorzolamide-timolol 22.3-6.8 mg/mL 1 drp ophthalmic (eye) BID esomeprazole magnesium 20 mg PO DAILY ketoconazole 2% 1 appl topical 3XW HPI Comments Details: gastric sleeve 2020 Lumbar spondylosis s/p back surgery 2014 Interval History: Patient last seen Today - On Enbrel 50mg SC every week - Has not taken Enbrel since February 2025 due to rash - Got a CXR with her primary and found a calcified granuloma - Since stopping the Enbrel she has noticed worsening of her joint symptoms and worsening AM stiffness Rheumatologic History: Current Rheumatology Medication(s): Enbrel 50mg SC weekly (not taking) [facility] Medical History (Updated 05/22/25 @ 08:56 by Brenda Zamudio MD) Diabetes type 2, controlled History of anxiety History of trigger finger Hx of lipoma Asthma GERD (gastroesophageal reflux disease) Hypertension Hyperlipidemia Gastric volvulus Chronic low back pain Fibromyalgia Surgical History S/P trigger finger release Hx of cholecystectomy Hx of LASIK Hx of knee surgery Hx of shoulder surgery History of carpal tunnel release of both wrists Hx of abdominal surgery H/O gastric sleeve Hx of colonoscopy History of esophagogastroduodenoscopy (EGD) Family History Paternal Aunt Colon cancer HTN (hypertension) Family/Other Colon cancer Maternal Grandfather Colon cancer Heart attack Maternal Grandmother Colon cancer Heart attack Father HTN (hypertension) Maternal Aunt HTN (hypertension) Paternal Aunt HTN (hypertension) Mother Rheumatoid arthritis Social History Alcohol intake: former Patient Tobacco Use Status: Never used Tobacco Review of Systems Const Details: Review of Systems Constitutional: Denies fever, chills, weight loss ENT: Denies vision changes, eye pain or eye redness, dental caries, dry mouth GI: Denies nausea, vomiting, diarrhea, abdominal pain, change in BM Pulm: Denies SOB, LACEY, hemoptysis, wheezing Cards: Denies chest pain, palpitations Skin: Denies Raynaud's, rash, nail changes, photosensitivity, HE[employer] COMMUNICATIONS SPECIALIST: Denies headaches, weakness, paresthesias, recurrent falls MSK: as per HPI All other systems reviewed and are unremarkable except noted above Physical Exam Exam Exam: Vital signs reviewed Physical Examination CONSTITUITIONAL Patient alert and cooperative. Well appearing and in no apparent painful distress HEENT Conjunctiva and sclera clear. No lymphadenopathy. CHEST/RESPIRATORY SYSTEM Normal respiratory effort and able to speak in complete sentences. Clear to auscultation bilaterally. No crackles, rales, rhonchi, wheezes heard. CARDIAC SYSTEM Regular rate and rhythm. S1 and S2 heard no murmurs. Radial pulses intact bilaterally MSK Hands * Right Hand: Able to make a fist. No swelling but TTP of the MCPs and PIPs. No TTP of the DIPs * Left Hand: Able to make a fist. No swelling but TTP of the MCPs and PIPs. No TTP of the DIPs * Herbedens nodes noted bilaterally Wrists * Right Wrist: Full ROM to flexion and extension. No swelling but TTP noted * Left Wrist: Full ROM to flexion and extension. No swelling but TTP noted Elbows * Right Elbow: Has brace over the lateral epicondyle. Full ROM. No swelling or TTP. No TTP of the medial epicondyle. TTP of the lateral epicondyle * Left Elbow: Full ROM. No swelling or TTP. No TTP of the medial epicondyle. No TTP of the lateral epicondyle Shoulders * Right shoulder: Decreased ROM. No swelling noted. No TTP of the AC joint. TTP of the subacromial bursa. No TTP of the posterior shoulder * Left shoulder: Decreased ROM. No swelling noted. No TTP of the AC joint. TTP of the subacromial bursa. No TTP of the posterior shoulder Knees * Right knee: Full ROM. No swelling noted. TTP of the knee joint line. No TTP of pes anserine bursa * Left knee: Full ROM. No swelling noted. TTP of the knee joint line. No TTP of pes anserine bursa. Ankles * Right ankle: Good ankle dorsiflexion and plantar flexion. No swelling. TTP of the ankle joint * Left ankle: Good ankle dorsiflexion and plantar flexion. No swelling. No TTP of the ankle joint Feet * Right foot: Negative squeeze test * Left foot: Negative squeeze test Tender points? * Tenderness to palpation of the bilateral trapezius, supraspinatus, anterior costochondral junctions, bilateral suboccipital muscle insertions SKIN No rashes Vital Signs: Last Vital Signs Pulse 91 05/22/25 07:49 BP 115/78 05/22/25 07:49 Pulse Ox 98 05/22/25 07:49 Oxygen Delivery Method Room Air 05/22/25 07:49 BMI result Body Mass Index 30.5 Results Reviewed Results Reviewed: Laboratory Tests 05/20/25 14:45 WBC 8.5 RBC 4.16 L Hgb 13.1 Hct 39.5 Plt Count 283 ESR 12 Sodium 141 Potassium 3.5 Chloride 107 Carbon Dioxide 23 BUN 21 H Creatinine 0.59 AST 20 ALT 10 C-Reactive Protein 0.14 Laboratory Tests 11/13/23 09:45 Rheumatoid Factor < 13.0 Cycl Citrul Peptide IgG <16 [place] Screen NEGATIVE SS-A/Ro Antibody <1.0 NEG SS-B/La Antibody <1.0 NEG Sm (Yañez) Antibody <1.0 NEG SM/CAT BREEDER IgG Antibody <1.0 NEG Double Strand DNA Ab <1 Anti-ds DNA (Crithidia) Negative Complement C3 52 L Complement C4 13 L MR Hand 06/2024 FINDINGS: BONE/JOINTS: Bony alignment is anatomic. No evidence of acute fracture or dislocation. No significant joint space narrowing is evident on MRI. No erosive changes identified. No suspicious lytic or blastic lesions. Cystic focus volar to the distal radius measuring 6 mm transverse, could reflect a synovial recess or small ganglion cyst. No significant wrist joint effusion. No significant distal radioulnar joint effusion. MUSCLE/TENDONS: Mild extensor carpi radialis longus and brevis peritendinitis/tenosynovitis. The extensor carpi ulnaris tendon is partially draped over the ulnar aspect of the distal ulnar bony groove, which could be related to positioning versus subsheath tear. The tendon appears intact. No evidence of significant tenosynovitis. The tendons grossly appear intact. LIGAMENTS: Evaluation of the intrinsic ligaments of the wrist joint are limited on this large [id number] study. The TFCC grossly appears intact. Scapholunate, lunotriquetral ligaments grossly appear intact. MEDIAN NERVE: Evaluation limited on this large [id number] study. The signal appears within normal limits. Guyon's Canal: No mass lesion is appreciated. IMPRESSION: 1. No evidence of acute osseous fracture or malalignment. No significant arthropathy or erosive changes is evident by MRI. 2. A 6 mm cystic focus volar to the distal radius, could reflect a synovial recess or ganglion cyst. 3. Mild extensor carpi radialis longus and brevis peritendinitis/tenosynovitis. 4. Ulnar subluxation of the extensor carpi ulnaris tendon, could be related to positioning versus subsheath tear. 5. Limited evaluation of the intrinsic ligaments of the wrist. Assessment & Plan Assessment & Plan (1) Seronegative rheumatoid arthritis: Comment: -ve RF -ve CCP dx 02/2024 MTX 02/2024 DC 04/2024 ineffective Enbrel 05/2024 - 01/2025. Rash Code(s): M06.00 - Rheumatoid arthritis without rheumatoid factor, unspecified site Category: Medical Plan: #Seronegative RA Patient is a 49-year-old female with seronegative rheumatoid arthritis here today for follow up. Currently in a flare of her disease on a background of cessation of Enbrel due to rash. She states that the rash was associated with significant itching and because of her glaucoma she is not able to use any topical creams such as topical hydrocortisone to assist with this. Given she has multiple tender joints on examination today she warrants immunosuppression. We will switch her Enbrel to Humira. Overall this is a difficult case because this patient has a lot of other comorbidities in addition to her rheumatoid arthritis which we will make pain control difficult. Her fibromyalgia, osteoarthritis, degenerative spine disease, and other soft tissue rheumatism such as tendonitis and rotator cuff disease will contribute to her pain and Humira we will not covered all of these issues. I informed patient of this to manage her expectations of the efficacy of Humira and immunosuppression overall in the management of her pain and she voiced understanding. Plan - Stop Enbrel - Start Humira 40mg SC every 2 weeks - RTC 4 months - Labs before visit: CBC, CMP, ESR, CRP (2) Fibromyalgia: Code(s): M79.7 - Fibromyalgia Plan: #Fibromyalgia Patient with concomitant fibromyalgia. Has trialed other medications in the past which were not helpful. We will trial low-dose naltrexone Plan - Naltrexone 4.5mg nightly (3) Calcified granuloma of lung: Code(s): J98.4 - Other disorders of lung Plan: #Calcific granuloma of the lung Patient with a incidentally found calcific granuloma of the lung. TB test previously was negative awaiting the most recent TB testing. We will get a CT to better evaluate this Discussed with patient that there are many different causes of lung granulomas but we need to get a better evaluation (4) Encounter for monitoring of adalimumab therapy: Code(s): Z51.81 - Encounter for therapeutic drug level monitoring; Z79.620 - care home (current) use of immunosuppressive biologic Plan: #Long-term Use of TNF Inhibitors: Humira Discussed with the patient the benefits and risks of TNF inhibitors for the management of the rheumatic condition Benefits include reduce pain, maintenance of remission and reduction of flares as well as progression of the disease Risks include injection sites/infusion reactions, serious infections (such as bacterial infections, opportunistic infections), malignancy, delaminating syndromes, autoimmune phenomena, CHF exacerbations, palmar plantar psoriasis and cytopenias Recommended rotating injection sites, and holding medication during and for up to 1 week after resolution of a febrile illness or open skin wound Plan I spent 40 minutes reviewing the record and labs, taking a history, examining the patient, discussing the treatment plan, ordering diagnostic work up and documenting in the medical record Orders: Orders CT chest wo con - High Res Today J98.4 - Other disorders of lung Medications: New adalimumab (Humira(CF) Pen) 40 mg (0.4 mL) subcut Q2W 2 ea 5RF M06.00 - Rheumatoid arthritis without rheumatoid factor, unspecified site naltrexone 4.5 mg PO .nightly 90 caps 1RF M79.7 - Fibromyalgia Refilled esomeprazole magnesium 20 mg PO DAILY 30 caps 2RF Coding Level of Care Code Est Pt Level 5 (24905) Complex EM visit Add On G2211 Diagnoses Seronegative rheumatoid arthritis M06.00 Fibromyalgia M79.7 Calcified granuloma of lung J98.4 Encounter for monitoring of adalimumab therapy Z51.81; Z79.620
[2025-05-22 07:49] VITALS: BP 115/78; PULSE 91; O2SAT 98; BMI 30.5
== END 2025-05-22 08:52 | disposition home or self-care (01) ==
LOC: HO.RHES 07:19
PROVIDERS: PCP Internal Medicine; Visit Provider Student in an Organized Health Care Education/Training Program
DX: M06.09 Rheumatoid arthritis without rheumatoid factor, multiple sites (principal); M79.7 Fibromyalgia; J98.4 Other disorders of lung; Z51.81 Encounter for therapeutic drug level monitoring; Z79.620 Long term (current) use of immunosuppressive biologic
CPT/HCPCS: 99215; G2211

== ENCOUNTER → 2025-05-22 07:18 | Outpatient (BNVA) | payer MEDICARE, MEDICAID, SELFPAY | PROVIDERS: PCP Internal Medicine; Visit Provider Student in an Organized Health Care Education/Training Program | DX: R06.00 Dyspnea, unspecified (principal); M79.7 Fibromyalgia; J98.4 Other disorders of lung; Z51.81 Encounter for therapeutic drug level monitoring; Z79.620 Long term (current) use of immunosuppressive biologic | CPT/HCPCS: 99212 ==